=== PATIENT | female | born 1955 | race Caucasian/White ===

== ENCOUNTER 2019-06-21 07:10 | Day surgery (SDC) | payer MEDICARE, SELFPAY ==
--- NOTE | 2019-05-25 17:23 | HP.PCM_ITS ---
History and Physical Date of Admission: 05/26/19 HISTORY AND PHYSICAL ? Emy Price 1955 ? ? REFERRING PHYSICIAN: ??Moses Aceves, DO ? CHIEF COMPLAINT: ??gallbladder issues ? HPI: Emy is a 61 year old female with a complaint of right upper quadrant pain. ?The patient has had symptoms of right upper quadrant pain. ? The patient was seen by the emergency room physician. ?Emy underwent an ultrasound. ?These tests demonstrated cholelithiasis. The patient is referred for evaluation and treatment. ? She was seen by Dr. Saab who recommended cholecystectomy. ?The patient was offered cholecystectomy at [place] or [facility] area the patient called wanting a second opinion and she wished to have her surgical procedure at [facility]. ? She had a follow up echocardiogram which demonstrated: ? CONCLUSIONS: - Technically difficult exam due to body habitus. - Exam indication: Preop evaluation for noncardiac surgery with low/intermediate clinical risk - The left ventricle is normal in size. There is mild concentric left ventricular hypertrophy. Left ventricular systolic function is normal. EF = 64 ? 5% (2D biplane) Grade I left ventricular diastolic dysfunction. - The right ventricle is normal in size. Right ventricular systolic function is normal. - The left atrial cavity is mildly dilated. - Moderate MAC with trivial MR. - Mild aortic sclerosis. - Exam was compared with the prior echocardiographic exam performed on 04/08/2003. No significant changes ? I planned?for laparoscopic cholecystectomy. ?The patient then decided to symptoms were not significant enough to warrant surgery. ?Recently, she is having increasing right upper quadrant complaints. ?She returns now requesting cholecystectomy. ?She states she is working on decreasing her tobacco use. ? SIGNIFICANT MEDICAL PROBLEMS:? PAST?MEDICAL?HISTORY PAST MEDICAL HISTORY Diagnosis Date ? Aortic sclerosis 03/2013 ? f/u echo in 2-3 years ? COPD (chronic obstructive pulmonary disease) (HCC) ? ? DDD (degenerative disc disease) ? ? Depression ? ? Diabetes mellitus without mention of complication ? ? Diabetes mellitus ? Essential hypertension, benign ? ? Insomnia ? ? Neuropathy (HCC) ? ? Tobacco abuse ? ? ? OPERATIONS:? PAST?SURGICAL?HISTORY PAST SURGICAL HISTORY Procedure Laterality Date ? COLONOSCOPY ? 2002 ? [facility] - ? COLONOSCOPY ? 04/19/13 ? Dr. Plaza ? REMOVAL OF TONSILS,<12 Y/O ? ? ? Tonsillectomy ? TOTAL ABDOM HYSTERECTOMY ? 1986 ? Hysterectomy, PJ ? ? CURRENT MEDICATIONS:? CURRENT?MEDICATIONS Current Outpatient Medications Medication Sig Dispense Refill ? FLUoxetine HCl (PROZAC) 40 mg capsule Take 1 capsule by mouth once daily. 90 capsule 1 ? omeprazole (PRILOSEC) 20 mg capsule Take 1 capsule by mouth daily before breakfast. 1/2 hr before meal. 30 capsule 1 ? buPROPion (WELLBUTRIN) 100 mg tablet Take 1 tablet PO in AM, 2 tablets PO in PM 270 tablet 0 ? oxyCODONE IR (ROXICODONE) 5 mg immediate release tablet Take 1-2 tablets by mouth every 6 hours as needed for Pain for up to 30 days. Max of 65 tablets per 30 days, Ok to fill on 05/18/19 or after 65 tablet 0 ? oxyCODONE IR (ROXICODONE) 5 mg immediate release tablet Take 1-2 tablets by mouth every 6 hours as needed for Pain for up to 50 days. Max of 65 tablets per 30 days, Ok to fill on 04/18/19 or after 65 tablet 0 ? oxyCODONE IR (ROXICODONE) 5 mg immediate release tablet Take 1-2 tablets by mouth every 6 hours as needed for Pain for up to 30 days. Max of 65 tablets per 30 days, Ok to fill on 03/19/19 or after 65 tablet 0 ? busPIRone (BUSPAR) 5 mg tablet TAKE 1 TABLET THREE TIMES DAILY FOR ANXIETY attack 270 tablet 0 ? cholecalciferol (VITAMIN D3) 2,000 unit tablet Take 1 tablet by mouth once daily. 90 tablet 3 ? amLODIPine (NORVASC) 5 mg tablet Take 1 tablet by mouth once daily. 90 tablet 3 ? traZODone (DESYREL) 150 mg tablet Take 1 tablet by mouth daily at bedtime. 90 tablet 3 ? Losartan-Hydrochlorothiazide 100-12.5 mg per tablet Take 1 tablet by mouth once daily. 90 tablet 1 ? simvastatin (ZOCOR) 40 mg tablet Take 1 tablet by mouth daily at bedtime. 90 tablet 1 ? metFORMIN (GLUCOPHAGE) 500 mg tablet Take 1 tablet by mouth twice daily with meals. 180 tablet 1 ? Magnesium 250 mg tab Take 1 tablet by mouth once daily. 30 tablet 3 ? albuterol HFA (PROVENTIL HFA, VENTOLIN HFA) 90 mcg/actuation inhaler Inhale 2 Puffs as instructed every 4 hours as needed for Wheezing/Shortness of Breath. 2 Inhaler 1 ? UNILET SUPER THIN LANCETS 30 gauge misc as directed. ? 3 ? blood sugar diagnostic (ACCU-CHEK FRANCK PLUS TEST STRP) test strip Test blood sugar once daily as directed. E11.65 100 Strip 3 ? Lancets (ACCU-CHEK SOFTCLIX LANCETS) lancets Test blood sugar once daily as directed. ?E11.65 100 Each 3 ? Blood-Glucose Meter (FREESTYLE LITE METER) monitoring kit Use as directed 1 Each 0 ? blood sugar diagnostic (FREESTYLE LITE STRIPS) test strip Test blood sugar(s) 2-3 times daily. ?Dx:250.0 . Insulin: No 50 Strip 11 ? Lancets (FREESTYLE LANCETS) lancets Test blood sugar(s) 2-3 times daily. ?Dx: 250.0 . Insulin: No 100 Each 11 ? No current facility-administered medications for this visit.? ? ALLERGIES:?Latex; Penicillins ? PERSONAL HISTORY:? SOCIAL?HISTORY Social History ??Socioeconomic History ?Marital status: Single ?Spouse name: Not on file ?Number of children: 1 ?Years of education: Not on file ?Highest education level: Not on file ??Occupational History ?Occupation: disability ??Social Needs ?Financial resource strain: Not on file ?Food insecurity: ?Worry: Not on file ?Inability: Not on file ?Transportation needs: ?Medical: Not on file ?Non-medical: Not on file ??Tobacco Use ?Smoking status: Current Every Day Smoker ?Packs/day: 1.50 ?Years: 25.00 ?Pack years: 37.5 ?Types: Cigarettes ?Smokeless tobacco: Never Used ??Substance and Sexual Activity ?Alcohol use: No ?Drug use: No ?Sexual activity: Not Currently ??Lifestyle ?Physical activity: ?Days per week: Not on file ?Minutes per session: Not on file ?Stress: Not on file ??Relationships ?Social connections: ?Talks on phone: Not on file ?Gets together: Not on file ?Attends pentecostalism service: Not on file ?Active member of club or organization: Not on file ?Attends meetings of clubs or organizations: Not on file ?Relationship status: Not on file ?Intimate partner violence: ?Fear of current or ex partner: Not on file ?Emotionally abused: Not on file ?Physically abused: Not on file ?Forced sexual activity: Not on file ??Other Topics ?Concerns: ?Not on file ??Social History Narrative ?Not on file ? FAMILY HISTORY:? FAMILY?HISTORY FAMILY HISTORY Problem Relation Age of Onset ? Cancer Mother ?stomach ? Ischemic Heart Disease Father ? ? Hypertension Father ? ? Diabetes Father ? ? Cancer Sister ?lung X 2 sisters ? Cancer Sister ?uterine ? REVIEW OF SYMPTOMS: ??The review of systems data was entered by the nurse and reviewed by me ? Nursing Notes: Smita Knight LPN ?05/21/2019 ?3:15 PM ?Signed REVIEW OF SYSTEMS: ?General:???The patient denies fatigue, NOTES weight loss, denies weight gain, denies feeling hot, and denies feelings of cold. ?Eyes: ?The patient denies glaucoma, denies eye injury/surgery, wears glasses or contacts. ?Ear/Nose/Throat: ?The patient denies allergies, denies hayfever, denies ear infections, and denies bloody noses. ?Cardiovascular: ?The patient denies chest pain, denies heart disease, NOTES high blood pressure,denies cardiac stent, denies prior heart attack, denies irregular heart beat, NOTES high cholesterol, ?denies poor circulation, denies heart failure, other cardiac issues, denies claudication, denies cold feet, denies peripheral arterial stent. ?Respiratory: ?The patient denies tuberculosis, denies pneumonia, denies frequent cough, denies pulmonary embolism, denies shortness of breath, and denies coughing up blood. ?Gastrointestinal: ?The patient denies difficulty swallowing, denies acid reflux, denies ulcers, denies vomiting, denies jaundice/hepatitis, denies gallbladder problems, denies black or tarry stools, denies hemorrhoids, denies bleeding from rectum, denies diverticulitis, denies constipation, denies diarrhea, denies loss of stool control, and denies hernias. ?Kidney/Bladder: ?The patient denies kidney stones, NOTES urine infections, and denies bloody urine. ?Skin: ?The patient denies a history of skin cancer, denies bleeding/changing moles, and denies a history of skin rash. ?Neurologic: ?The patient denies a history of epilepsy/convulsions, denies headaches, NOTES head/spinal injuries, and denies stroke/TIA. ?Psychiatric: ?The patient denies psychiatric medications, NOTES depression, and denies voices, denies substance abuse. ?Endocrine: ?The patient denies thyroid disorders, NOTES diabetes, and denies hormonal problems. ?Hematologic: ?The patient denies a history of bruising, denies bleeding, and denies anemia, denies blood clots. ?Infections: ?The patient denies a history of measles and mumps, denies rheumatic fever, and denies sexually transmitted diseases. ?Musculoskeletal: ?The patient NOTES back pain/injury, denies back problems, denies sciatica, denies knee/foot trouble, denies arthritis, or denies gout. ? ? When was patient's last Mammogram screening? 2 years ago ? ?Last Colonoscopy: ?2012 ? Smita Knight LPN ? ? PHYSICAL EXAMINATION: ? General: ?The patient is 61 year old female, well nourished, well hydrated in no acute distress. ?The patient is oriented to time, place, and person. ? VITALS:??Blood pressure 112/64, pulse 78, temperature 36.2 ?C (97.1 ?F), temperature source Temporal Artery, resp. rate 18, height 162.6 cm (5' 4), weight 64 kg (141 lb), SpO2 94 %.??Body mass index is 24.2 kg/m?.? ? HEENT: ?Normal cephalic, ataumatic, pupils are equally round, sclera are anicteric, mucous membranes are moist, oropharynx is clear. ?Neck has no masses, asymmetry or lymphadenopathy. ?Thyroid is unremarkable. ? Respiratory: ?Clear to auscultation and percussion. ?Normal respiratory excursion and pattern. ? Cardiac: ?Examination is regular rate and rhythm. - Significant systolic ejection murmur ? Abdominal exam: ?Normoactive bowel sounds, Soft, non tender in the right upper quadrant negative Tracy's sign, ?with no palpable masses. ?No hepatosplenomegaly. ?No palpable hernias. ? Rectal exam: exam deferred ? Extremities: ?no clubbing, cyanosis or edema. ?No adenopathy. ? Other: ? ? LABORATORY VALUES: As Noted ? RADIOLOGIC STUDIES: ?As Noted Above ? IMPRESSION: Cholelithiasis ? PLAN: ?? I plan to perform a laparoscopic cholecystectomy with intraoperative choleangiogram. ??The planned surgical procedure was discussed extensively with the patient. ?The risks, benefits, anticipated outcomes and possible complications were mentioned. ?My staff has also explained the procedure in understandable terms and the patient was given the option to take printed material concerning the planned procedure. ?The patient had the opportunity to ask questions concerning the planned procedure. ?The patient freely consents to the planned procedure. ? Anticipated Surgical Procedure/ CPT Code: LAPAROSCOPIC CHOLECYSTECTOMY WITH INTRAOPERATIVE CHOLEANGIOGRAM - 50339-561 ? Anticipated Anesthetic: General ? Patient weight:??Blood pressure 112/64, pulse 78, temperature 36.2 ?C (97.1 ?F), temperature source Temporal Artery, resp. rate 18, height 162.6 cm (5' 4), weight 64 kg (141 lb), SpO2 94 %.?BMI: ?Body mass index is 24.2 kg/m?. ? Planned antibiotic: clindamycin 600mg IVPB inspector repairer sandstone to OR ? SCDs needed - Yes ? Loft Patternmaker Needed - Yes ?? ? My findings have been communicated to Dr. Helen Aceves DO via shared medical record. ?This note will be forwarded to Dr. Moses Aceves DO. ? Diagnoses:?(M25.511) Pain in joint of right shoulder ?(primary encounter diagnosis) (K80.20) Calculus of gallbladder without cholecystitis without obstruction ? Ty Plaza MD
[2019-05-26 05:54] VITALS: BP 159/68; PULSE 64; RESP 16; TEMP 36.2; O2SAT 97; BMI 24.7
[2019-05-26 05:55] LABS: Bedside Glucose 110 mg/dL (70-110)
[2019-05-26] MEDS: Lactated Ringers 1,000 ML 100 ML IV (06:14)
[2019-05-26 06:45] LABS: Hematocrit 38.3 % (37-47); Hemoglobin 13.4 g/dL (12.0-15.0); Mean Corpuscular Hgb 30.6 pg (27.0-32.0); Mean Corpuscular Volume 87.4 fL (81-99); Mean Platelet Vol. 9.8 fl (6.2-12.0); Platelet Count 213 K/mm3 (150-450); RBC Distribution Width CV 12.6 % (11.6-14.6); RBC Distribution Width SD 40.3 fl (35.1-43.9); Red Blood Count 4.38 M/mm3 (4.2-5.4); White Blood Count 7.7 K/mm3 (4.4-11.0)
[2019-05-26 06:49] LABS: Anion Gap 11 (5-15); BUN 17 mg/dL (7-18); BUN/Creat Ratio 18.7 RATIO (10-20); Calcium,Total 8.7 mg/dL (8.5-10.1); Chloride 107 mmol/L (98-107); Creatinine, Serum 0.91 mg/dL (0.55-1.02); EST Glomerular Filtration Rate 67 mL/min (>60); Est Glom Filt Rate - Afr Amer 81 mL/min (>60); Estimated Creatinine Clearance 55.35 ml/min; Glucose 113 mg/dL (74-106); Potassium 2.9 mmol/L (3.5-5.1); Sodium Level 142 mmol/L (136-145)
[2019-05-26 08:03] LABS: Hemoglobin A1c 5.4 % (4.2-6.3)
[2019-06-21 07:31] LABS: Bedside Glucose 143 mg/dL (70-110)
[2019-06-21 07:43] VITALS: BP 153/67; PULSE 68; RESP 15; TEMP 36.7; O2SAT 97; BMI 26.2
[2019-06-21] MEDS: Lactated Ringers 1,000 ML 100 ML IV ×2 (07:50→13:00)
--- NOTE | 2019-06-21 08:50 | RAD_ITS ---
STUDY: INTRAOPERATIVE CHOLANGIOGRAM. REASON FOR EXAM: Female, 64 years old. Laparoscopic cholecystectomy. FLUOROSCOPY TIME (if supplied): ( 19.1 seconds ) minutes/seconds. 122 images were obtained for a cine loop. TECHNIQUE: Intraoperative cholangiogram was performed by the surgeon. Imaging was submitted. COMPARISON: None. FINDINGS: The intrahepatic biliary ducts are unremarkable. The common bile duct is not dilated. No intraluminal filling defect is seen. There is free flow of contrast into the duodenum. RAD/Cholangiogram/ O R,Initial IMPRESSION: Unremarkable intraoperative cholangiogram. Electronically Signed: Armin Kaba, at 15:11 EST , Service support ,
--- NOTE | 2019-06-21 08:50 | GALL_PTH ---
PATIENT: JENNIFER CRUZ [place] [facility] [place][id number] AGE/SX: 64/F ROOM: RE06/21/[address]: Dr. Ty Plaza MD : 1955 BED: DIS: 06/21/2019 SPEC #: [id number] RECD: 06/21/19 13:44 STATUS: YG REJordon #: [id number] DENI: 06/21/19 08:[address]: Ty Plaza DEPT: SURGICAL PATHOLOGY RECD BY: Clayton Mccormick ENTERED: 06/21/19 13:52 SP TYPE: CHARU MACK DR: Dr. Moses Aceves, DO Tissues: Gallbladder, NOS Procedures: Surgery Specimen Level III HEADER OPERATION: Laparoscopic cholecystectomy with IOC PRE-OP DIAGNOSIS: Calculus of gallbladder without cholecystitis TISSUE SUBMITTED: Gallbladder MICROSCOPIC DIAGNOSIS Gallbladder, cholecystectomy: Chronic cholecystitis and cholelithiasis. SJ:rianna 11/12/19 MICROSCOPIC DESCRIPTION Slides are reviewed. GROSS DESCRIPTION Received is one container labeled with the patient's name and designated gallbladder. The specimen consists of a previously, partially opened gallbladder measuring 11.5 cm in length and 6 cm in diameter. The external surface is pink-jenkins, smooth and glistening for the most part. Focally it is granular, hemorrhagic and contains cautery artifact. The gallbladder contains green-yellow mucoid bile. Present in the container are two ovoid to multifaceted black stones measuring 2.5 and 4 cm in greatest dimension. The mucosa is bile-stained and without any mass lesions. The gallbladder wall measures up to 0.3 cm in thickness. Breakdown Worker sections from the gallbladder and the cystic duct are submitted in one cassette. / SJ:rianna 06/21/19 TC:3 CPT: 36158
[2019-06-21] MEDS: Bupivacaine Mpf 0.5% 30 ML VIAL (13:25)
--- NOTE | 2019-06-21 13:37 | OP.PCM_ITS ---
Report of Operation Date of Procedure: 06/21/19 Pre-Operative Diagnosis: symptomatic cholelithiasis Post-Operative Diagnosis: symptomatic cholelithiasis, normal intraoperative cholangiogram Surgery/Procedure Performed:: laparoscopic cholecystectomy with intraoperative cholangiogram manager media: Key Flood Type of Anesthesia:: General Anesthesiologist: Logan Greer - ASA2 Specimen's removed: gallbladder Estimated Blood Loss (mL): 50 Fluids Replaced: 1200 Description of Procedure: The patient was brought to the operating suite. Sign in was performed verifying patient, site, position, SCIP antibiotic prophylaxis- 900 milligrams of clindamycin and DVT prophylaxis with SCDs. Following induction of general anesthetic. The patient?s abdomen was prepped and draped in the usual fashion. Timeout was performed verifying patient, site, position. Local anesthetic was injected below the umbilicus. Incision made and dissection carried down to the umbilical root fascia. 2 stay sutures were placed. Incision made in the fascia, the peritoneum entered under direct visualization. A 10 mm Parks trocar was inserted and secured with the stay sutures. Pneumoperitoneum to 15 mmHg was insufflated. Visual inspection revealed and enlarged gallbladder with multiple stones present. 3 right upper quadrant 5 ports were placed in the standard position. The gallbladder was grasped retracted upward and outward. Dissection was carried out in Calot?s triangle. When a critical view of the neck of the gallbladder funneling of the cystic duct with no signs of aberrant ductal structures were seen, a clip was placed on the neck of the gallbladder cystic duct junction. A partial ductotomy was made. A Cholangiocath was inserted into the duct and secured with a clip. Intraoperative cholangiogram was performed demonstrating filling of the cystic duct filling the common bile duct and emptying into the duodenum without signs of obstruction area and the clip and catheter were removed. 2 clips placed on the cystic duct and the cystic duct divided. Dissection was continued until the cystic artery was clearly dissected and identified. The artery was then doubly clipped proximally singly clipped distally and divided. The gallbladder was then dissected free from the gallbladder fossa using electrocautery. The gallbladder was placed in an Endobag and removed through the umbilical port site. in the bag and gallbladder tore while attempting to remove the gallbladder through the umbilical port site. The umbilical port site was extended. The dropped large gallstone was retrieved and the sites were irrigated copiously. Two 0 PDS [id number] suture was placed around the umbilical port site defect. Pneumoperitoneum was reestablished. The gallbladder fossa was checked for hemostasis. With good hemostasis, the area was irrigated and aspirated to clear. 5mm ports were removed under direct visualization with no signs of bleeding. Pneumoperitoneum was released. The Parks trocar was removed. The umbilical fascial suture was secured area did skin was closed with interrupted 4-0 Monocryl subcuticular sutures. Steri-Strips and bandages were applied. The patient was brought to recovery room in stable condition. - Admit VTE Documentation VTE Present on Admission: No VTE Mechan Device Prophylaxis: SCD's VTE Pharm Prophylaxis ordered?: No
[2019-06-21 13:45] VITALS: BP 121/62; BP 159/68; PULSE 67; RESP 16; TEMP 36.4; O2SAT 97
[2019-06-21 13:56] LABS: Bedside Glucose 88 mg/dL (70-110)
[2019-06-21 14:00] VITALS: BP 159/68; BP 93/48; PULSE 64; RESP 16; O2SAT 97
[2019-06-21 14:14] VITALS: BP 159/68; BP 91/45; PULSE 64; RESP 16; O2SAT 96
[2019-06-21 14:28] VITALS: BP 159/68; BP 96/69; PULSE 61; RESP 16; TEMP 36.1; O2SAT 94
[2019-06-21 15:00] VITALS: BP 110/58; BP 159/68; PULSE 61; RESP 16; TEMP 36.6; O2SAT 93
--- NOTE | 2019-06-21 15:06 | DCINST_ITS ---
Discharge Diet: Light diet - advance as tolerated Discharge Activity: May Not Drive - for 2-3 days or while taking narcotic pain medications., - - Do not drive, work heavy equipment or sign legal documents for 24 hours. May shower in (days): 1 - with the bandage in place. Additional Activity Instructions:: Pain medication may cause nausea. You should typically eat light foods as you take your pain medications. Pain medication may also cause constipation. If this is a problem for you, please discuss with your doctor. Call your doctor if your incision/area has: Continuous Slow Oozing, Sudden Increased Bleeding, Increased Pain/ Swelling, Increased Redness, Foul Smelling Discharge Call your doctor if you observe: Fever of 101 or Higher Suture Line Care: Avoid Pulling/Pushing, Avoid Pinching/Bending Additional Dressing/Incision Instructions:: Leave operative bandaids on for 2 days. When you remove dressing, leave Steri-Strips on until your follow-up appointment, or until the Steri-Strips fall off on their own. Allergies/Adverse Reactions: Allergies Latex, Natural Rubber Allergy (Verified 06/21/19 07:23) Shortness of breath Penicillins Allergy (Verified 06/21/19 07:23) Hives Medications to take at Discharge Fluoxetine HCl [Prozac] 20 mg PO DAILY 10/18/16 Magnesium 250 mg PO DAILY 10/18/16 Simvastatin [Zocor] 40 mg PO QHS 10/18/16 Trazodone ER [Oleptro Er] 150 mg PO QHS 10/18/16 Albuterol Inhaler [Ventolin Hfa] 1 - 2 puff INHALATION Q4H PRN PRN 05/25/19 Amlodipine [Norvasc] 5 mg PO DAILY 05/25/19 Bupropion HCl [Wellbutrin Sr] 100 mg PO DAILY 05/25/19 Bupropion HCl [Wellbutrin Sr] 200 mg PO QHS 05/25/19 Losartan/Hydrochlorothiazide [Losartan-Hctz 100-25 mg Tab] 1 ea PO DAILY 05/25/19 Metformin HCl [Metformin ER Gastric] 1,000 mg PO BID 05/25/19 busPIRone [Buspar] 5 mg PO BID 05/25/19 Potassium Chloride [Klor-Con M10] 10 meq PO BID 30 Days #60 tab.er.prt 05/26/19 Oxycodone [Oxyir] 5 mg PO Q4H PRN PRN 5 Days #12 tab 06/21/19 The following prescriptions were given: Potassium Chloride [Klor-Con M10] 10 meq PO BID 30 Days #60 tab.er.prt Prescription Printed Oxycodone [Oxyir] 5 mg PO Q4H PRN PRN 5 Days #12 tab PRN Reason: Pain Score 4-05/20 Prescription Printed Primary Care Physician: Moses Aceves DO [Primary Care Provider] - Test Results: Test results from this visit will be discussed in further detail at your follow- up appointment, if applicable. Please Follow Up With: Ty Plaza MD - Please call [phone] to schedule an appointment. When: 7 days after your surgery
[2019-06-21] MEDS: oxyCODONE 5 MG Tablet PO (15:11)
== END 2019-06-21 15:44 | disposition home or self-care (01) ==
LOC: SDC 07:12 → AC 07:13
PROVIDERS: Anesthesiology; Family Provider Student in an Organized Health Care Education/Training Program; PCP Student in an Organized Health Care Education/Training Program; Referring Provider Student in an Organized Health Care Education/Training Program; Visit Provider Surgery
PROC: (CPT 47610; principal; 2019-06-21 08:30)
DX: K80.10 Calculus of gallbladder with chronic cholecystitis without obstruction (principal); J44.9 Chronic obstructive pulmonary disease, unspecified; F32.9 Major depressive disorder, single episode, unspecified; I10 Essential (primary) hypertension; E11.9 Type 2 diabetes mellitus without complications; Z88.0 Allergy status to penicillin; F17.210 Nicotine dependence, cigarettes, uncomplicated
CPT/HCPCS: 47563; 74300; 76000; 80048; 82962; 83036; 84132; 85027; 88304; 93005; J7120; J2405

== ENCOUNTER → 2021-12-04 | Outpatient (CLI) | payer MEDICARE, SELFPAY ==
[2021-12-04 15:24] LABS: Hemoglobin 14.8 g/dL (12.0-15.0); Mean Corp Hgb Conc 34.4 g/dL (32-36); Mean Corpuscular Hgb 29.7 pg (27.0-32.0); Mean Corpuscular Volume 86.3 fL (81-99); Mean Platelet Vol. 10.4 fl (6.2-12.0); Platelet Count 274 K/mm3 (150-450); RBC Distribution Width CV 12.8 % (11.6-14.6); RBC Distribution Width SD 39.8 fl (35.1-43.9); Red Blood Count 4.98 M/mm3 (4.2-5.4); White Blood Count 9.5 K/mm3 (4.4-11.0)
[2021-12-04 15:43] LABS: Vitamin B12 472 pg/mL (211-911)
[2021-12-04 15:54] LABS: AST(SGOT) 14 U/L (15-37); Alanine Aminotransfer ALT/SGPT 14 U/L (13-56); Albumin, Serum 3.8 g/dL (3.2-5.0); Alkaline Phosphatase 151 U/L (45-117); Anion Gap 5 (5-15); BUN 19 mg/dL (7-18); BUN/Creat Ratio 19.9 RATIO (10-20); Calcium,Total 8.9 mg/dL (8.5-10.1); Chloride 104 mmol/L (98-107); Creatinine, Serum 0.96 mg/dL (0.55-1.02); EST Glomerular Filtration Rate 62 mL/min (>60); Est Glom Filt Rate - Afr Amer 75 mL/min (>60); Globulin 3.9 g/dL (2.2-4.2); Glucose 124 mg/dL (74-106); Potassium 4.3 mmol/L (3.5-5.1); Protein, Total 7.7 g/dL (6.4-8.2); Sodium Level 136 mmol/L (136-145); Thyroid Stim Hormone (TSH) 1.63 uIU/mL (0.358-3.74)
[2021-12-17 08:07] LABS: Free Kappa Light Chains 20.2 mg/L (3.3-19.4); Free Lambda Light Chains 16.2 mg/L (5.7-26.3)
[2021-12-17 13:24] LABS: Vitamin B1, Thiamine 139.9 nmol/L (66.5-200.0)
== END | disposition home or self-care (01) ==
LOC: MTLAB 12:48
PROVIDERS: PCP Student in an Organized Health Care Education/Training Program; Referring Provider Psychiatry & Neurology Neurology; Visit Provider Psychiatry & Neurology Neurology
DX: E11.42 Type 2 diabetes mellitus with diabetic polyneuropathy (principal); G31.84 Mild cognitive impairment of uncertain or unknown etiology
CPT/HCPCS: 36415; 80053; 82607; 82746; 83883; 84425; 84443; 85027

== ENCOUNTER → 2021-12-17 | Outpatient (CLI) | payer MEDICARE, SELFPAY ==
--- NOTE | 2021-12-17 10:13 | MRI_ITS ---
STUDY: MRI BRAIN WITH AND WITHOUT CONTRAST REASON FOR EXAM: Female, 66 years old. Parkinson''s disease; cerebrovascular disease TECHNIQUE: Standardized multiplanar fat and water weighted pulse sequences were obtained. IV DOTAREN 15CC was administered for the contrast portion of the examination. COMPARISON: Head CT dated October 18, 2016 FINDINGS: There is mild cerebral atrophy with widening of the extra-axial spaces and ventricular dilatation. There are a limited number of small white matter hyperintensities, distributed throughout the deep white matter tracts of the cerebral hemispheres, consistent with mild chronic white matter ischemic changes. There is no evidence for recent intracranial ischemia or other cause of cytotoxic edema on diffusion weighted imaging (DWI). Normal T2* images of the brain without demonstrated susceptibility artifact. There is no demonstrated hemosiderin stain. No focal brain parenchymal lesions or abnormal enhancement. No abnormal thickening or enhancement of the meninges or dura. Normal bilateral basal ganglia. Slightly heterogeneous signal in the posterior aspect of the right thalamic lobe corresponds to dense calcification which is better visualized on the head CT. Unremarkable left thalamic lobe. There is no extra-axial fluid accumulation. Normal flow voids within the major intracranial circulation suggesting patency by spin echo criteria. Normal venous enhancement. There is no enhancing intra-axial or extra-axial abnormality. Normal sella turcica, pituitary gland, infundibular stalk, optic chiasm and hypothalamus. Normal tectal plate and pineal gland. Normal midbrain, bhanu and medulla. Normal cerebellum. Normal basal cisterns. Normal bilateral temporal bones. Normal bilateral internal auditory canals. No demonstrated orbital abnormality, within the constraints of a routine brain study. Normal visualized paranasal sinuses. Normal calvarium and skull base. Normal visualized soft tissue structures. Normal visualized upper cervical spine. MRI/Brain W/WO Contrast IMPRESSION: 1. Involutional changes of the brain, as described above. 2. No focal brain parenchymal lesions or abnormal enhancement. No abnormal thickening or enhancement of the meninges or dura. Electronically Signed: Rodney Osman MD at 13:23 EDT ,
== END | disposition home or self-care (01) ==
LOC: MRI 10:13
PROVIDERS: PCP Student in an Organized Health Care Education/Training Program; Visit Provider Psychiatry & Neurology Neurology
DX: G20 Parkinson's disease (principal); I67.9 Cerebrovascular disease, unspecified; G31.84 Mild cognitive impairment of uncertain or unknown etiology
CPT/HCPCS: 70553; A9575

== ENCOUNTER → 2023-04-11 | Outpatient (CLI) | payer MEDICARE, MEDICAID, SELFPAY ==
[2023-04-15 16:09] LABS: Acetylcholine Receptor Binding < 0.03 nmol/L (0.00-0.24)
== END | disposition home or self-care (01) ==
PROVIDERS: PCP Student in an Organized Health Care Education/Training Program; Referring Provider Ophthalmology; Visit Provider Ophthalmology
DX: H53.2 Diplopia (principal)
CPT/HCPCS: 36415; 84238

== ENCOUNTER 2024-09-02 19:17 | Inpatient (IN) | payer MEDICARE, MEDICAID, SELFPAY ==
[2024-09-02 19:18] VITALS: BP 135/80; PULSE 74; RESP 18; TEMP 36.9; O2SAT 91; BMI 33.3
[2024-09-02 19:20] VITALS: BP 135/80; PULSE 74; RESP 18; TEMP 36.9; O2SAT 91
--- NOTE | 2024-09-02 19:30 | EKG12_ITS ---
Test Reason : DYSRHYTHMIA Blood Pressure : */* mmHG Vent. Rate : 74 BPM Atrial Rate : 74 BPM P-R Int : 198 ms QRS Dur : 90 ms QT Int : 402 ms P-R-T Axes : 92 -35 66 degrees QTcB Int : 446 ms Normal sinus rhythm Left axis deviation Minimal voltage criteria for LVH, may be normal variant ( [place] product ) Nonspecific ST and T wave abnormality Abnormal ECG Confirmed by LISET ANGEL, LUIS ([id number]), photograph editor BRADFORD RODRÍGUEZ ([id number]) on 09/07/2024 7:15:19 AM Referred By: Confirmed By: LUIS HUTCHINS MD
--- NOTE | 2024-09-02 19:30 | CT_ITS ---
EXAMINATION : Head CT w/out contrast HISTORY : weakness COMPARISON : 10/18/2016. TECHNIQUE : Multiple contiguous axial images were obtained from the skull base to the vertex without intravenous contrast. A radiation dose optimization technique was used for this scan. FINDINGS : The ventricles and sulci are normal in size. There is no evidence for acute intracranial hemorrhage, mass effect, or midline shift. There is no extra-axial fluid collection. There is normal bird-white differentiation, without CT evidence of acute ischemia or infarct. There are benign-appearing calcifications. The skull base and calvarium are unremarkable. The orbits are unremarkable. The paranasal sinuses are clear. The mastoid air cells are well-aerated. The soft tissues are unremarkable. CT/Brain/Head without Contrast IMPRESSION: No acute intracranial abnormality. Electronically Signed: Suman Cevallos MD at 20:08 EST ,
--- NOTE | 2024-09-02 19:32 | EDS_ITS ---
HPI <ELMA Ferro - Last Filed: 09/02/24 21:41> History of Present Illness Chief Complaint: General Illness Narrative Narrative: Patient is a 69-year-old female with history of CVA, COPD, type 2 diabetes, Parkinson's disease who smokes 1.5 packs/day. Patient lives alone, presenting to the emergency department for weakness. Per the patient, she had 2 falls today, also notes that her motor skills were getting worse and she tipped over to bottles of pop today. Per the family, the patient has been going downhill for the last month. Patient does have a walker as well as a cane however per the family she does not use them very well. Patient was speaking with a neighbor today, mention that she fell twice and she is feeling weak, the neighbor then called EMS. PFS <ELMA Ferro - Last Filed: 09/02/24 21:41> [facility] Medical History (Updated 09/02/24 @ 21:41 by ELMA Ferro) Tobacco use Anxiety and depression CKD (chronic kidney disease) History of drug abuse Diabetes mellitus type 2 in nonobese Venous insufficiency Hypertension Hyperlipidemia Recovering alcoholic Restless legs syndrome Parkinson's disease Mild cognitive impairment Polyneuropathy COPD (chronic obstructive pulmonary disease) Osteoarthritis Neuropathy Heart murmur High triglycerides Cataracts, bilateral Back problem Arthritis Home Medications ?Medication ?Instructions ?Recorded ?Last Taken ?Type fluoxetine 20 mg capsule (Prozac) 20 mg PO DAILY 10/18/16 10/18/16 History magnesium 250 mg tablet 250 mg PO DAILY 10/18/16 10/18/16 History simvastatin 40 mg tablet 40 mg PO QHS 10/18/16 10/16/16 History trazodone 150 mg tablet 150 mg PO QHS 10/18/16 10/17/16 History albuterol sulfate 90 mcg/actuation 1 - 2 puff inhalation Q4H PRN PRN 05/25/19 Unknown History aerosol inhaler Sob &/Or Wheezing amlodipine 5 mg tablet 5 mg PO DAILY 05/25/19 06/21/19 05:00 History 5 MG bupropion HCl 100 mg tablet,12 hr 100 mg PO DAILY 05/25/19 05/26/19 04:30 History sustained-release 100 MG bupropion HCl 100 mg tablet,12 hr 200 mg PO QHS 05/25/19 Unknown History sustained-release buspirone 5 mg tablet 5 mg PO BID 05/25/19 06/21/19 05:00 History 5 MG losartan 100 1 ea PO DAILY 05/25/19 Unknown History mg-hydrochlorothiazide 25 mg tablet metformin 1,000 mg 24 hr 1,000 mg PO BID 05/25/19 Unknown History tablet,extended release (gastric reten.) gabapentin 300 mg capsule 300 mg PO TID 12/04/21 Unknown History potassium chloride 10 mEq 10 meq PO BID 12/04/21 Unknown History capsule,extended release carbidopa 25 mg-levodopa 100 See Rx Instructions PO TID #405 07/27/24 Unknown Rx mg-entacapone 200 mg tablet tabs ropinirole 1 mg tablet 1 mg PO QHS #90 tabs 07/27/24 Unknown Rx amantadine HCl 100 mg capsule 100 mg PO QDAY #90 caps 08/09/24 Unknown Rx alendronate 70 mg tablet mg PO 09/02/24 Unknown History buspirone 10 mg tablet mg 3XD 09/02/24 Unknown History fluoxetine 10 mg capsule mg DAILY 09/02/24 Unknown History glipizide 5 mg tablet mg 09/02/24 Unknown History Allergy/AdvReac Type Severity Reaction Status Date / Time Latex, Natural Rubber Allergy Severe Shortness Verified 07/27/24 10:50 of breath Penicillins AdvReac Severe Hives Verified 07/27/24 10:50 Family History Other Alcoholism Anxiety Arthritis Bowel disease Heart disease High cholesterol Parkinson disease Surgical History History of hysterectomy Social History (Updated 09/02/24 @ 21:[address] Genna Ibrahim MD) household members: none Smoking Status: Current every day smoker tobacco type: cigarettes Smoking packs per day: 1.5 Smoking cigarettes per day: 30.0 Tobacco: How many years used: 34 alcohol intake: former details: Been clean for 25 years substance use type: former substance user what type of physical activity do you participate in: walking frequency: daily carlo/temple: Religious seatbelt use: always ROS <ELMA Ferro - Last Filed: 09/02/24 21:41> ROS ED ROS Narrative Constitutional: Negative for fever, chills, weight loss. Positive for weakness Eyes: Negative for vision loss, vision change, double vision ENT: Negative for any sore throat, ear pain, congestion Cardiovascular: Negative for any chest pain, tightness, palpitations Respiratory: Negative for any cough, sputum production, hemoptysis, dyspnea, dyspnea on exertion, orthopnea Gastrointestinal: Negative for any abdominal pain, nausea, vomiting, diarrhea, constipation, blood in stool, blood in vomit : Negative for any urinary frequency, dysuria, retention, blood in urine Muscle skeletal: Negative for any neck pain, back pain Neurological: Negative for any headache, syncope, dizziness. Positive for feeling shaky Skin: Negative for any rashes, itching, abrasions, lacerations Psychiatric: Negative for any depression, anxiety, stress, suicidal ideation, homicidal ideation Hematologic: Negative for any excessive bruising, easy bleeding EXAM <ELMA Ferro - Last Filed: 09/02/24 21:41> Physical Exam Narrative Exam Narrative: Vital signs reviewed. Patient is alert and orient x 4. Per the family, they are concerned about her going home secondary to her weakness and recurrent falls HEET: Head normocephalic atraumatic, TMs clear bilaterally. Posterior pharynx is clear, moist mucous membranes. Nares clear bilaterally. No signs of head or neck trauma. Neck: Supple with no lymphadenopathy or tenderness. No signs of meningismus. Cardiac: Regular rate and rhythm no murmurs gallops or rubs, equal peripheral pulses bilaterally. Respiratory: Lungs clear to auscultation bilaterally. No chest tenderness. Abdomen: Soft, nontender, nondistended. No abdominal bruit or pulsatile masses. No hepatosplenomegaly Extremities: No peripheral edema, no signs of gross trauma or deformity. Active full range of motion of all extremities. Neuro: Cranial nerves II through XII intact, no focal neurological deficits. NIH stroke scale 0 Skin: Clean dry and intact with no rash, purpura, petechiae, vesicles or pustules. Backs/flank: No CVA tenderness, no midline spinal tenderness, no deformity. Psych: Normal mood and affect. No SI, HI or acute psychosis. Const Vital Signs: 09/02/24 19:18 09/02/24 19:20 09/02/24 19:20 Temperature 98.5 F 98.5 F Temperature Source Oral Oral Pulse Rate 74 74 Respiratory Rate 18 18 Respiratory Effort Normal Respiratory Pattern Normal Blood Pressure 135/80 H 135/80 H Blood Pressure Mean 98 98 Pulse Ox 91 91 Oxygen Delivery Method Room Air Room Air 09/02/24 21:18 Temperature Temperature Source Pulse Rate 71 Respiratory Rate 18 Respiratory Effort Respiratory Pattern Blood Pressure 162/80 H Blood Pressure Mean 107 Pulse Ox 92 Oxygen Delivery Method Room Air <Dr. Dinesh Elizabeth MD - Last Filed: 09/02/24 20:57> Physical Exam Const Vital Signs: 09/02/24 19:18 09/02/24 19:20 09/02/24 19:20 Temperature 98.5 F 98.5 F Temperature Source Oral Oral Pulse Rate 74 74 Respiratory Rate 18 18 Respiratory Effort Normal Respiratory Pattern Normal Blood Pressure 135/80 H 135/80 H Blood Pressure Mean 98 98 Pulse Ox 91 91 Oxygen Delivery Method Room Air Room Air 09/02/24 21:18 Temperature Temperature Source Pulse Rate 71 Respiratory Rate 18 Respiratory Effort Respiratory Pattern Blood Pressure 162/80 H Blood Pressure Mean 107 Pulse Ox 92 Oxygen Delivery Method Room Air MDM <ELMA Ferro - Last Filed: 09/02/24 21:41> MDM Lab Data Labs: Laboratory Results - last 24 hr 09/02/24 09/02/24 19:42 20:31 WBC 8.2 RBC 4.61 Hgb 14.9 Hct 41.2 MCV 89.4 MCH 32.3 H MCHC 36.2 H RDW Std Deviation 38.9 RDW Coeff of [place] 12.0 Plt Count 162 MPV 10.1 Immature Gran % (Auto) 0.400 Neut % (Auto) 83.6 H Lymph % (Auto) 6.0 L [place] % (Auto) 7.4 Eos % (Auto) 1.7 Baso % (Auto) 0.9 Absolute Neuts (auto) 6.8 Absolute Lymphs (auto) 0.49 L Nucleated RBC % 0 Sodium 136 Potassium 3.7 Chloride 104 Carbon Dioxide 24.0 Anion Gap 8 BUN 12 Creatinine 1.36 H Estim Creat Clear Calc 43.15 Est GFR (MDRD) Af Amer 50 L Est GFR (MDRD) Non-Af 41 L BUN/Creatinine Ratio 8.8 L Glucose 250 H Calcium 8.0 L Total Bilirubin 1.20 H AST 7 L ALT < 6 L Alkaline Phosphatase 92 Troponin I High Sens 32 Total Protein 6.7 Albumin 3.4 Globulin 3.3 Albumin/Globulin Ratio 1.0 Urine Color Straw Urine Clarity Cloudy Urine pH 6.0 Ur Specific [place] 1.015 Urine Protein 30 H Urine Glucose (UA) Normal Urine Ketones 5 H Urine Occult Blood 25 H Urine Nitrite Positive H Urine Bilirubin Negative Urine Urobilinogen Normal Ur Leukocyte Esterase 100 H Urine RBC 0 SEEN Urine WBC 25-50 SEEN Ur Squamous Epith Cells 0-5 SEEN Urine Bacteria 3+ Urine Mucus 0 SEEN Radiography Diagnostic Testing: Clinical Impression(s) from Imaging Studies Brain CT 09/02/24 19:30 IMPRESSION: No acute intracranial abnormality. Electronically Signed: Suman Cevallos MD at 20:08 EST , Chest X-Ray 09/02/24 19:38 IMPRESSION: No acute radiographic abnormalities. Electronically Signed: Suman Cevallos MD at 19:56 EST , EKG Normal sinus rhythm: Attestation: I personally reviewed and interpreted this EKG as follows: Interpretation: Sinus Rhythm Comments: Normal sinus rhythm, rate 74 bpm, MN interval 198 ms, QRS duration 90 ms, no acute ST elevation, no acute infarct noted. Treatment and Re-Evaluation :: Differential diagnosis includes however is not limited to: Electrode abnormality, dehydration, hyperglycemia, CVA, TIA, intracranial bleeding secondary to trauma, failure to thrive, depression, worsening Parkinson's disease, medication reaction Patient appears generally well, vital signs are stable, patient is nontoxic- appearing. Presenting to the emergency department after having 2 falls today, difficult to perform daily test, failure to thrive. Patient will receive a full workup including basic laboratory values, CT scan of the brain, two-view chest x-ray. COVID RSV flu as well as urinalysis will be obtained. All radiologic examinations were read, reviewed by the emergency department attending. From these reads, a plan of care will be put in place. Patient on reevaluation did have a fever 100.7, she was given Tylenol. Patient was 87% on room air. Patient was placed on 2 L normal saline. Patient CT scan of the brain, chest x-ray was unremarkable, laboratory eval showed normal CBC, patient's chemistries show a creatinine of 1.36, this seems to be baseline for the patient over the last several years. Glucose 250, patient's urinalysis was positive for infection with 3+ bacteria 25-50 white blood cells, 100 leukocytes, positive nitrites. This was sent for culture, Rocephin was ordered. Patient's respiratory viral panel did show positive for influenza A. Secondary to this f inding, the patient's been hypoxic, weak, falling multiple times a day and being alone. I do believe that the patient needs to be admitted to hospital. I will reach out to hospitalist. <Dr. Dinesh Elizabeth MD - Last Filed: 09/02/24 20:57> MDM MDM Narrative Medical decision making narrative: I have personally performed a face to face assessment of the patient and have reviewed the DUSTIN Note. I performed a substantive portion of the visit including all aspects of the following. My brandt findings include: History is 69-year-old female history of Parkinson's. Had 2 falls today. Family states she has just been off since around [place]. Patient typically does not have a lot of falls. She denies any fever or headache. She denies any abdominal pain. She has developed some diarrhea today. She denies any weakness to her upper or lower extremities. No significant head trauma. Exam is [69-year-old female no acute distress. Vital signs stable afebrile. H EENT exam pupils round react light. Mytrex membranes. No facial droop. No trauma. Neck nontender. Lungs clear. Heart regular rhythm rate about 70 no murmur. Chest wall ribs nontender. Abdomen soft nontender. Moving all 4 extremities. 5 and 5 armament installer strength. Dorsi plantarflexion intact. She is awake and alert. Answering questions following commands.] Medical Decision Making [69-year-old female with a benign exam. CT and labs are being obtained.] Other additions or changes: [None] History & Record Review Discussion w/independent historian: Patient and Family Additional record(s) reviewed:: Prior inpatient record, Prior outpatient record, Prior ED visit and Prior labs Lab Data Attestation: I reviewed the patient's lab results. Lab results narrative: CBC shows a white count 8. H&H 14 and 41. Platelets 162. Electrolytes show a gap of 8. BUN and creatinine 12 and 1.36. Glucose 250. Liver enzymes unremarkable. Labs: Laboratory Results - last 24 hr 09/02/24 09/02/24 19:42 20:31 WBC 8.2 RBC 4.61 Hgb 14.9 Hct 41.2 MCV 89.4 MCH 32.3 H MCHC 36.2 H RDW Std Deviation 38.9 RDW Coeff of [place] 12.0 Plt Count 162 MPV 10.1 Immature Gran % (Auto) 0.400 Neut % (Auto) 83.6 H Lymph % (Auto) 6.0 L [place] % (Auto) 7.4 Eos % (Auto) 1.7 Baso % (Auto) 0.9 Absolute Neuts (auto) 6.8 Absolute Lymphs (auto) 0.49 L Nucleated RBC % 0 Sodium 136 Potassium 3.7 Chloride 104 Carbon Dioxide 24.0 Anion Gap 8 BUN 12 Creatinine 1.36 H Estim Creat Clear Calc 43.15 Est GFR (MDRD) Af Amer 50 L Est GFR (MDRD) Non-Af 41 L BUN/Creatinine Ratio 8.8 L Glucose 250 H Calcium 8.0 L Total Bilirubin 1.20 H AST 7 L ALT < 6 L Alkaline Phosphatase 92 Troponin I High Sens 32 Total Protein 6.7 Albumin 3.4 Globulin 3.3 Albumin/Globulin Ratio 1.0 Urine Color Straw Urine Clarity Cloudy Urine pH 6.0 Ur Specific [place] 1.015 Urine Protein 30 H Urine Glucose (UA) Normal Urine Ketones 5 H Urine Occult Blood 25 H Urine Nitrite Positive H Urine Bilirubin Negative Urine Urobilinogen Normal Ur Leukocyte Esterase 100 H Urine RBC 0 SEEN Urine WBC 25-50 SEEN Ur Squamous Epith Cells 0-5 SEEN Urine Bacteria 3+ Urine Mucus 0 SEEN Radiography Diagnostic Testing: Clinical Impression(s) from Imaging Studies Brain CT 09/02/24 19:30 IMPRESSION: No acute intracranial abnormality. Electronically Signed: Suman Cevallos MD at 20:08 EST , Chest X-Ray 09/02/24 19:38 IMPRESSION: No acute radiographic abnormalities. Electronically Signed: Suman Cevallos MD at 19:56 EST , Discharge Plan Dx/Rx/DC Orders Clinical Impression: Falls, Parkinson's disease, Generalized weakness, Influenza A, Acute UTI, History of diabetes mellitus, Hypoxia Disposition Disposition: Acute Care Hospital [facility]
--- NOTE | 2024-09-02 19:38 | RAD_ITS ---
INDICATION: cough EXAMINATION/TECHNIQUE: X-RAY - XR Chest 2 Views COMPARISON: 03/16/2012. FINDINGS: The lungs are clear. The cardiomediastinal silhouette is unremarkable. No pleural effusion or pneumothorax. Degenerative changes of the thoracic spine. RAD/Chest PA and Lateral IMPRESSION: No acute radiographic abnormalities. Electronically Signed: Suman Cevallos MD at 19:56 EST ,
[2024-09-02 19:49] LABS: Absolute Lymphocyte Count 0.49 X10^3/uL (0.83-4.51); Absolute Neutrophil Count 6.8 X10^3/uL (2.0-7.7); Basophil# 0.07 X10^3/uL; Basophil% 0.9 % (0-1); Eosinophil# 0.14 X10^3/uL; Eosinophils% 1.7 % (0-5); Hematocrit 41.2 % (37-47); Hemoglobin 14.9 g/dL (12.0-15.0); Lymphocyte # 0.49 X10^3/ul (0.83-4.51); Mean Corp Hgb Conc 36.2 g/dL (32-36); Mean Corpuscular Hgb 32.3 pg (27.0-32.0); Mean Corpuscular Volume 89.4 fL (81-99); Mean Platelet Vol. 10.1 fl (6.2-12.0); Monocyte% 7.4 % (0-10); NRBC Flagged by Analyzer 0 % (0-5); Neutrophil # 6.82 X10^3/uL (2.7-7.7); Neutrophil % 83.6 % (47-70); POSITIVE DIFFERENTIAL YES; Platelet Count 162 K/mm3 (150-450); RBC Distribution Width SD 38.9 fl (35.1-43.9); Red Blood Count 4.61 M/mm3 (4.2-5.4); White Blood Count 8.2 K/mm3 (4.4-11.0)
[2024-09-02 20:14] LABS: AST(SGOT) 7 U/L (15-37); Alanine Aminotransfer ALT/SGPT < 6 U/L (13-56); Albumin, Serum 3.4 g/dL (3.2-5.0); Alkaline Phosphatase 92 U/L (45-117); Anion Gap 8 (5-15); BUN 12 mg/dL (7-18); BUN/Creat Ratio 8.8 RATIO (10-20); Chloride 104 mmol/L (98-107); Creatinine, Serum 1.36 mg/dL (0.55-1.02); EST Glomerular Filtration Rate 41 mL/min (>60); Est Glom Filt Rate - Afr Amer 50 mL/min (>60); Estimated Creatinine Clearance 43.15 ml/min; Globulin 3.3 g/dL (2.2-4.2); Glucose 250 mg/dL (74-106); Potassium 3.7 mmol/L (3.5-5.1); Protein, Total 6.7 g/dL (6.4-8.2); Sodium Level 136 mmol/L (136-145); Troponin-I HS 32 pg/mL (3.0-54.0)
[2024-09-02 20:35] LABS: Mucous, Urine 0 SEEN /hpf (<or=2+); Red Blood Cells-Urine 0 SEEN /hpf (0-5)
[2024-09-02 20:43] LABS: Color, Urine Straw (Yellow); Glucose, Dipstick Normal (Normal); Ketone-Dipstick 5 mg/dl (Negative); Leukocyte Esterase-Dipstick 100 /ul (Negative); Nitrite-Dipstick Positive (Negative); Occult Blood-Urine 25 /ul (Negative); Protein-Dipstick 30 mg/dl (Negative); Specific Gravity, Urine 1.015 (1.002-1.030); Urine Bilirubin Dipstick Negative (Negative); Urine Clarity Cloudy (Clear); Urine Urobilinogen Normal (Normal)
[2024-09-02 21:18] VITALS: BP 162/80; PULSE 71; RESP 18; O2SAT 92
[2024-09-02 21:34] LABS: Bacteria 3+ /hpf (None Seen); Squamous Epithelial Cells - UA 0-5 SEEN /hpf (5-10); White Blood Cells 25-50 SEEN /hpf (0-5)
--- NOTE | 2024-09-02 21:40 | HP.PCM.HOS_ITS ---
HPI - General General Date of Admission: 09/02/24 Date of Service: 09/02/24 Chief Complaint: Falls, malaise, weakness. HPI Narrative The patient is a 69 y/o F w/ PMHx: CKD unclear staging/subtype, possible II versus III, Anxiety and Depression, RLS, Hx CVA, Parkinson's disease w/ mild cognitive impairment, COPD, HTN, HLD, Diabetes mellitus type II with chronic neuropathy, Former EtOH/Polysubstance Abuse Sober/Clean, Tobacco use who presents to the [facility] ED on 09/02/24 with history of weakness, 2 falls on day of presentation with decline over the last month with difficulty even using her walker or cane living alone checked on by a neighbor today and given her falls prompted them to call EMS. She does report a history of dysuria and urinary frequency over the last week. She denied any fevers or chills although in the ED her temperature did rise to 99.5 orally. She notes on day of presentation she started to have mild cough that is dry, rhinorrhea, mild congestion and dyspnea worse with exertion. She notes no specific recent ill contacts but she does smoke frequently outside with several individuals in her neighborhood. Workup in the ED included T98.5, heart 74, BP 135/80, respiratory rate 18, 91% on room air-> eventually desaturating down to 85% on room air improving to 97% on 2 L nasal cannula specifically occurring at rest of note, CBC with WBC 8.2, hemoglobin 14.9, platelet 162 with lymphopenia, CMP with BUN/[place] 12/1.26, GFR 41, glucose 250, T. bili 1.20 otherwise hepatic profile not marked appearing, troponin 32, chest x-ray with no acute cardiopulmonary findings, CT of the brain with no acute intracranial findings, rapid SARS COVID/influenza/RSV PCR with positive influenza A, urinalysis with specific remedy 1.015, protein 30, ketone 5, occult blood 25, positive nitrite, leukocyte esterase 100 with urine WBCs 25- 50 with 3+ urine bacteria, urine culture pending per ED. In the ED patient ministered Tylenol 1000 mg p.o. x 1 and Rocephin 1 g IV x 1. [facility] Medical History Tobacco use Anxiety and depression CKD (chronic kidney disease) History of drug abuse Diabetes mellitus type 2 in nonobese Venous insufficiency Hypertension Hyperlipidemia Recovering alcoholic Restless legs syndrome Parkinson's disease Mild cognitive impairment Polyneuropathy COPD (chronic obstructive pulmonary disease) Osteoarthritis Neuropathy Heart murmur High triglycerides Cataracts, bilateral Back problem Arthritis Home Medications ?Medication ?Instructions ?Recorded ?Last Taken ?Type fluoxetine 20 mg capsule (Prozac) 20 mg PO DAILY 10/18/16 10/18/16 History magnesium 250 mg tablet 250 mg PO DAILY 10/18/16 10/18/16 History simvastatin 40 mg tablet 40 mg PO QHS 10/18/16 10/16/16 History trazodone 150 mg tablet 150 mg PO QHS 10/18/16 10/17/16 History albuterol sulfate 90 mcg/actuation 1 - 2 puff inhalation Q4H PRN PRN 05/25/19 Unknown History aerosol inhaler Sob &/Or Wheezing amlodipine 5 mg tablet 5 mg PO DAILY 05/25/19 06/21/19 05:00 History 5 MG bupropion HCl 100 mg tablet,12 hr 100 mg PO DAILY 05/25/19 05/26/19 04:30 History sustained-release 100 MG bupropion HCl 100 mg tablet,12 hr 200 mg PO QHS 05/25/19 Unknown History sustained-release buspirone 5 mg tablet 5 mg PO BID 05/25/19 06/21/19 05:00 History 5 MG losartan 100 1 ea PO DAILY 05/25/19 Unknown History mg-hydrochlorothiazide 25 mg tablet metformin 1,000 mg 24 hr 1,000 mg PO BID 05/25/19 Unknown History tablet,extended release (gastric reten.) gabapentin 300 mg capsule 300 mg PO TID 12/04/21 Unknown History potassium chloride 10 mEq 10 meq PO BID 12/04/21 Unknown History capsule,extended release carbidopa 25 mg-levodopa 100 See Rx Instructions PO TID #405 07/27/24 Unknown Rx mg-entacapone 200 mg tablet tabs ropinirole 1 mg tablet 1 mg PO QHS #90 tabs 07/27/24 Unknown Rx amantadine HCl 100 mg capsule 100 mg PO QDAY #90 caps 08/09/24 Unknown Rx alendronate 70 mg tablet mg PO 09/02/24 Unknown History buspirone 10 mg tablet mg 3XD 09/02/24 Unknown History fluoxetine 10 mg capsule mg DAILY 09/02/24 Unknown History glipizide 5 mg tablet mg 09/02/24 Unknown History Allergy/AdvReac Type Severity Reaction Status Date / Time Latex, Natural Rubber Allergy Severe Shortness Verified 07/27/24 10:50 of breath Penicillins AdvReac Severe Hives Verified 07/27/24 10:50 Family History (Updated 09/02/24 @ 22:[address] Genna Ibrahim MD) Mother Alcoholism Anxiety Father High cholesterol Heart disease CAD (coronary artery disease) Myocardial infarction Other Arthritis Bowel disease Parkinson disease Surgical History History of hysterectomy Social History household members: none Smoking Status: Current every day smoker tobacco type: cigarettes Smoking packs per day: 1.5 Smoking cigarettes per day: 30.0 Tobacco: How many years used: 34 alcohol intake: former details: Been clean for 25 years substance use type: former substance user what type of physical activity do you participate in: walking frequency: daily carlo/scientologist: Yarsanism seatbelt use: always ROS ROS Narrative Admission Review of Systems: CONSTITUTIONAL: No weight loss, fever, chills, + weakness or fatigue. HEENT: + Congestion, rhinorrhea, sneezing. Eyes: No visual loss, blurred vision, double vision or yellow sclerae. Ears, Nose, Throat: No hearing loss. SKIN: No rash or itching, lesions, wounds. CARDIOVASCULAR: No chest pain, chest pressure or chest discomfort, palpitations, edema, orthopnea, syncopal events. RESPIRATORY: + Dyspnea, nonproductive cough. No marked wheezing or hemoptysis. GASTROINTESTINAL: + Decreased appetite. No nausea, vomiting or diarrhea, abdominal pain, melena, BRBPR. GENITOURINARY: + Dysuria and frequency. No urgency or retention. NEUROLOGICAL: No headache, dizziness, syncope, paralysis, ataxia, numbness or tingling in the extremities, focal weakness, change in bowel or bladder control, seizure. MUSCULOSKELETAL: + muscle, back pain, joint pain or stiffness. HEMATOLOGIC: No anemia, bleeding or bruising. LYMPHATICS: No enlarged nodes. No history of splenectomy. PSYCHIATRIC: + History of anxiety and depression. ENDOCRINOLOGIC: No reports of sweating, cold or heat intolerance. No polyuria or polydipsia. ALLERGIES: + History of hives, allergic rhinitis. Vital Signs Vital Signs Vital Signs: 09/02/24 19:18 09/02/24 19:20 09/02/24 19:20 Temperature 98.5 F 98.5 F Temperature Source Oral Oral Pulse Rate 74 74 Respiratory Rate 18 18 Respiratory Effort Normal Respiratory Pattern Normal Blood Pressure 135/80 H 135/80 H Blood Pressure Mean 98 98 Pulse Ox 91 91 Oxygen Delivery Method Room Air Room Air 09/02/24 21:18 Temperature Temperature Source Pulse Rate 71 Respiratory Rate 18 Respiratory Effort Respiratory Pattern Blood Pressure 162/80 H Blood Pressure Mean 107 Pulse Ox 92 Oxygen Delivery Method Room Air Weight Weight: 194 lb 7.163 oz Body Mass Index (BMI) 33.3 Physical Exam Narrative Physical Examination: General: Awake, alert, oriented x 3 and cooperative, seated upright in the ED bed, no acute distress, fatigued and mildly ill-appearing. Skin: Normal color, normal turgor, no icterus, no cyanosis except occasional stage ecchymoses, abrasion likely from recent falls HEENT: AT/NC, EOMI, PERRLA, moderately dry MM, no carotid bruits or JVD noted. Lungs: Diminished, greater bases, mildly increased respiratory rate but no distress, no appreciated rales, ronchi or wheezing. Heart: Regular rate and rhythm; no gallop, rub audible. Abdomen: Soft, obese, NTTP, ND, mildly hyperactive BS, no appreciated HSM. Extremities: No cyanosis, clubbing, or edema. Neurological: Patient awake, alert, oriented as noted, cognitive function intact; pupils equally reactive to light and accommodation, cranial nerves grossly normal, moving all 4 extremities, no focal deficits, strength moderately to severely globally decreased. Psychiatric: Affect appears flat, fatigued, mildly ill-appearing, no acute evidence of depressive or anxiety feelings but does have underlying history. Results Lab / Micro Data 09/02/24 19:42 09/02/24 19:42 Labs: Laboratory Results - last 24 hr 09/02/24 19:42: WBC 8.2, RBC 4.61, Hgb 14.9, Hct 41.2, MCV 89.4, MCH 32.3 H, M CHC 36.2 H, RDW Std Deviation 38.9, RDW Coeff of [place] 12.0, Plt Count 162, MPV 10.1, Immature Gran % (Auto) 0.400, Neut % (Auto) 83.6 H, Lymph % (Auto) 6.0 L, [place] % (Auto) 7.4, Eos % (Auto) 1.7, Baso % (Auto) 0.9, Absolute Neuts (auto) 6.8, Absolute Lymphs (auto) 0.49 L, Nucleated RBC % 0, Sodium 136, Potassium 3.7, Chloride 104, Carbon Dioxide 24.0, Anion Gap 8, BUN 12, Creatinine 1.36 H, Estim Creat Clear Calc 43.15, Est GFR (MDRD) Af Amer 50 L, Est GFR (MDRD) Non-Af 41 L, BUN/Creatinine Ratio 8.8 L, Glucose 250 H, Calcium 8.0 L, Total Bilirubin 1.20 H, AST 7 L, ALT < 6 L, Alkaline Phosphatase 92, Troponin I High Sens 32, Total Protein 6.7, Albumin 3.4, Globulin 3.3, Albumin/Globulin Ratio 1.0 09/02/24 20:31: Urine Color Straw, Urine Clarity Cloudy, Urine pH 6.0, Ur Specific [place] 1.015, Urine Protein 30 H, Urine Glucose (UA) Normal, Urine Ketones 5 H, Urine Occult Blood 25 H, Urine Nitrite Positive H, Urine Bilirubin Negative, Urine Urobilinogen Normal, Ur Leukocyte Esterase 100 H, Urine RBC 0 SEEN, Urine WBC 25-50 SEEN, Ur Squamous Epith Cells 0-5 SEEN, Urine Bacteria 3+, Urine Mucus 0 SEEN Micro: Microbiology 09/02/24 19:35 Mucosa - Nose SARS-CoV-2, Influenza & RSV (PCR) - Final Influenzae A Imaging Radiology Impression Brain CT 09/02/24 19:30 IMPRESSION: No acute intracranial abnormality. Electronically Signed: Suman Cevallos MD at 20:08 EST , Chest X-Ray 09/02/24 19:38 IMPRESSION: No acute radiographic abnormalities. Electronically Signed: Suman Cevallos MD at 19:56 EST , Assessment & Plan Assessment/Plan (1) Influenza A: (2) Acute UTI: (3) Hypoxia: PLAN: Plan The patient is a 69 y/o F w/ PMHx: CKD unclear staging/subtype, possible II versus III, Anxiety and Depression, RLS, Hx CVA, Parkinson's disease w/ mild cognitive impairment, COPD, HTN, HLD, Diabetes mellitus type II with chronic neuropathy, Former EtOH/Polysubstance Abuse Sober/Clean, Tobacco use who presents to the [facility] ED on 09/02/24 with history of weakness, 2 falls on day of presentation with decline over the last month with difficulty even using her walker or cane living alone checked on by a neighbor today w/ recent dysuria and urinary frequency over the last week and also on day of presentation she started to have mild cough that is dry, rhinorrhea, mild congestion and dyspnea worse with exertion. #1. Mechanical falls, adult failure to thrive secondary to Acute Hypoxia secondary to Acute Influenza A Viral Syndrome in addition to #2 acute complicated urinary tract infection: Will admit to [facility] given stable vital signs, maintain on oxygen with wean as tolerated, continue ATC budesonide, PRN albuterol, given timeline will initiate and maintain on Tamiflu with dosing per pharmacy given underlying chronic renal dysfunction as noted, HOB, IS parameters w/ pending Bld cx x 2 from ED. PT/OT/case management consulted for discharge planning. #2. Acute Complicated Urinary Tract Infection: UA upon ED evaluation remarkable, pending UCx, will maintain on judicious IVFs, monitor I/Os, continue IV Rocephin w/ transition as able pending sensitivities and speciation. #3. Parkinson's disease with mild cognitive impairment: Complicates presentation, maintain on fall precautions, PT/OT/case management consulted as noted, we will continue patient carbidopa/levodopa/entacapone/amantadine home regimen. #4. Mild hyperbilirubinemia, appears chronic: Admission CMP with T. bili 1.20, AST/LT 7/less than 6, alk phos 92, previous T. bili mildly elevated also in 2021, will continue to trend CMP, unclear exact etiology but prior history of polysubstance abuse and alcohol abuse. #5. Chronic COPD: Encourage cigarette tobacco cessation, will maintain on ATC budesonide therapy, PRN albuterol, HOB, IS parameters. #6. Hypertension: Continue home regimen including amlodipine, losartan, temporally holding hydrochlorothiazide with judicious hydration with resumption once appropriate, PRN hydralazine. #7. Hyperlipidemia: We will continue patient on statin therapy. #8. Chronic Kidney Disease Stage II versus stage III, unclear exact staging as has vacillated, per GFR trending: Admission BUN/Cr 07/11.36, GFR 41 however previously had been stage II, baseline renal function more recently primarily 0.9 however the last lab was noted in 2021 the certainly could have progressed, repeat BMP in AM to further elucidate chronicity staging. #9. Diabetes mellitus type II with chronic neuropathy: Hold oral home regimen, continue home gabapentin regimen, ADA diet, accu checks w/ ISS. #10. History CVA: Will continue aspirin, statin, hypertensive regimen with adjustments as noted, diabetic regimen with adjustments as noted temporarily. #11. Anxiety and depression: We will continue patient home fluoxetine, bupropion, trazodone and BuSpar home regimen with hold for sedation. #12. Restless leg syndrome: We will continue patient on Requip regimen. #13. Tobacco Abuse: Encouraged cessation, inpatient consultation per RT, NR if desired. #14. Former alcohol/polysubstance abuse: Reports clean and sober status, encourage continuation, UDS requested to be cautious. #15. DVT prophylaxis: Lovenox. #16. CODE status: Patient JORDAN is her son and living will is currently in place. Discussed CODE status at length including difference between FULL code, DNR-CCA and DNR-CC status. Following discussions about the differences in these status, requested Full Code status. Advanced Care Planning Face to Face Time: 16 minutes. Charges/Coding Visit Charges Inpatient E&M: 47926 Init Hosp L3 Procedures Hospitalists Procedures: 74338 Advncd Care Plan 30 Min
[2024-09-02 21:45] VITALS: O2SAT 85
[2024-09-02] MEDS: Acetaminophen 500 MG Tablet 1000 MG PO (21:45)
[2024-09-02 21:47] VITALS: BP 174/87; PULSE 71; RESP 18; TEMP 37.5; O2SAT 97
[2024-09-02] MEDS: Ceftriaxone 1 GM/50 ML BAG IV (22:09)
[2024-09-02 22:16] LABS: Magnesium 1.5 mg/dL (1.6-2.6); Phosphorus 1.7 mg/dL (2.5-4.9)
[2024-09-02 22:24] LABS: Amphetamine Urine VISTA NEGATIVE (<1000 ng/mL); Barbiturate Urine VISTA NEGATIVE (< 200 ng/mL); Benzodiazepine Urine VISTA NEGATIVE (< 200 ng/mL); Cocaine Urine VISTA NEGATIVE (< 300 ng/mL); Ecstacy Urine VISTA NEGATIVE (< 500 ng/mL); Methadone Urine VISTA NEGATIVE (< 300 ng/mL); PCP Urine VISTA NEGATIVE (< 25 ng/mL); THC Urine VISTA NEGATIVE (< 50 ng/mL); Vista UDS pH Range 5
[2024-09-02 22:37] VITALS: BMI 31.2
[2024-09-02] MEDS: 0.9% Normal Saline (1000mL) 1,000 ML 100 ML IV (22:51)
[2024-09-02 22:53] VITALS: BP 110/63; PULSE 63; RESP 16; TEMP 37; O2SAT 94
[2024-09-02] MEDS: Gabapentin 300 MG Capsule PO (23:12)
[2024-09-02] MEDS: busPIRone 5 MG Tablet PO (23:12)
[2024-09-02] MEDS: Potassium Chloride Oral Tablet 10 MEQ PO (23:12)
[2024-09-02] MEDS: Atorvastatin Calcium 20 MG Tablet PO (23:12)
[2024-09-02] MEDS: Oseltamivir Phosphate 75 MG Capsule PO (23:12)
[2024-09-02] MEDS: traZODone 100 MG Tablet 150 MG PO (23:13)
[2024-09-02] MEDS: Pramipexole Di-HCl 0.5 MG Tablet PO (23:13)
[2024-09-02] MEDS: CARBIDOPA PO (23:22)
[2024-09-02] MEDS: ENTACAPONE PO (23:22)
[2024-09-02] MEDS: LEVODOPA PO (23:22)
[2024-09-02] MEDS: Insulin Lispro 100 UNIT/ML INSULN.PEN SC (23:29)
[2024-09-02 23:43] LABS: Bedside Glucose 182 mg/dL (74-106)
[2024-09-03 06:01] VITALS: BP 132/64; PULSE 62; RESP 18; TEMP 36.8; O2SAT 97
[2024-09-03 06:04] VITALS: BMI 31.9
[2024-09-03] MEDS: LEVODOPA PO ×3 (06:14→21:28)
[2024-09-03] MEDS: CARBIDOPA PO ×3 (06:14→21:28)
[2024-09-03] MEDS: ENTACAPONE PO ×3 (06:14→21:28)
[2024-09-03] MEDS: Gabapentin 300 MG Capsule PO ×3 (06:14→21:27)
[2024-09-03] MEDS: Insulin Lispro 100 UNIT/ML INSULN.PEN SC ×2 (06:15→12:00)
[2024-09-03 06:37] LABS: Bedside Glucose 180 mg/dL (74-106)
[2024-09-03 06:59] LABS: Absolute Lymphocyte Count 0.77 X10^3/uL (0.83-4.51); Absolute Neutrophil Count 5.2 X10^3/uL (2.0-7.7); Basophil# 0.06 X10^3/uL; Basophil% 0.9 % (0-1); Eosinophil# 0.02 X10^3/uL; Eosinophils% 0.3 % (0-5); Hematocrit 38.6 % (37-47); Hemoglobin 13.7 g/dL (12.0-15.0); Lymphocyte # 0.77 X10^3/ul (0.83-4.51); Lymphocyte % 11.3 % (19-41); Mean Corp Hgb Conc 35.5 g/dL (32-36); Mean Corpuscular Hgb 32.3 pg (27.0-32.0); Mean Platelet Vol. 10.3 fl (6.2-12.0); Monocyte# 0.76 X10^3/uL; Monocyte% 11.1 % (0-10); NRBC Flagged by Analyzer 0 % (0-5); Neutrophil # 5.18 X10^3/uL (2.7-7.7); Neutrophil % 75.7 % (47-70); Platelet Count 137 K/mm3 (150-450); RBC Distribution Width CV 12.2 % (11.6-14.6); RBC Distribution Width SD 40.8 fl (35.1-43.9); Red Blood Count 4.24 M/mm3 (4.2-5.4); White Blood Count 6.8 K/mm3 (4.4-11.0)
[2024-09-03 07:35] VITALS: O2SAT 93
--- NOTE | 2024-09-03 07:35 | CPS ---
Pt doesn't take any inhaled steroids at home and declined them her. RT will contact
[2024-09-03 08:07] LABS: ALB/GLOB Ratio 0.8 RATIO (0.9-2.4); AST(SGOT) < 3 U/L (15-37); Alanine Aminotransfer ALT/SGPT < 6 U/L (13-56); Albumin, Serum 2.9 g/dL (3.2-5.0); Alkaline Phosphatase 77 U/L (45-117); Anion Gap 4 (5-15); BUN 15 mg/dL (7-18); BUN/Creat Ratio 9.9 RATIO (10-20); Calcium,Total 7.4 mg/dL (8.5-10.1); Chloride 110 mmol/L (98-107); Creatinine, Serum 1.51 mg/dL (0.55-1.02); EST Glomerular Filtration Rate 37 mL/min (>60); Est Glom Filt Rate - Afr Amer 44 mL/min (>60); Estimated Creatinine Clearance 38.09 ml/min; Globulin 3.5 g/dL (2.2-4.2); Glucose 181 mg/dL (74-106); Potassium 3.9 mmol/L (3.5-5.1); Protein, Total 6.4 g/dL (6.4-8.2); Sodium Level 136 mmol/L (136-145)
[2024-09-03 11:01] VITALS: BP 114/61; PULSE 61; RESP 18; TEMP 37.2; O2SAT 93
[2024-09-03] MEDS: busPIRone 5 MG Tablet PO ×2 (11:43→21:27)
[2024-09-03] MEDS: Potassium Chloride Oral Tablet 10 MEQ PO ×2 (11:43→21:27)
[2024-09-03] MEDS: Aspirin 81 MG TAB.CHEW PO (11:43)
[2024-09-03] MEDS: FLUoxetine 20 MG Capsule PO (11:44)
[2024-09-03] MEDS: Enoxaparin 40 MG/0.4 ML Syringe SC (11:44)
[2024-09-03] MEDS: Amantadine 100 MG Capsule PO (11:44)
[2024-09-03] MEDS: amLODIPine 5 MG Tablet PO (11:44)
[2024-09-03] MEDS: Oseltamivir Phosphate 30 MG Capsule PO ×2 (11:45→21:27)
[2024-09-03] MEDS: Glucerna Shake 120 ML LIQUID PO (12:03)
--- NOTE | 2024-09-03 12:09 | CASEMGMT ---
EVON BUSTAMANTE Assessment Face to Face with patient for initial transition planning/care coordination assessment. EVON BUSTAMANTE introduced self and role at [facility], pt voices understanding. Pt is A&Ox4 and is resting comfortably in the chair and is calm. Care providers, pharmacy, and demographics verified. Admitting dx: Falls, UTI, Influenza A, Adult FTT LACE Strata: 2 PCP:[facility] Specialists: Denies Preferred Pharmacy: [facility] Insurance: [employer] MCR, [employer] Prescription Benefit: Yes LNOK: Rodney Price (Son) Living Arrangements: Pt lives alone in a ground level apartment with a flat entrance ADLs/IADLs: Pt reports that she is mainly independent but that she has Private Duty Aides that come every MWF and assist with cleaning and showering Transportation: Pt does not drive. Pt states that her family drives her and denies concerns DME: Functioning BGM with sufficient supplies. Cane. FWW. BP Machine. Pt may qualify for home oxygen use. A verbal list of local in-network DME companies were provided to the pt at this time. Pt prefers [facility]. HHC/SNF: Denies skilled Hx or needs Pt?s goal: Return home Plan: Home, follow for oxygen needs. Pt states that she feels safe returning home alone at the time of DC with the continuation of her Pvt Duty Aid and denies the need for skilled HH, OP Tx, or CCN. However, PT and OT are ordered and evaluations are pending. Pt denies further concerns at this time. CM to follow. Roberto Nuñez RN, CM
[2024-09-03 12:22] LABS: Bedside Glucose 159 mg/dL (74-106)
--- NOTE | 2024-09-03 14:41 | CHAPLAIN ---
Type of Pastoral Visit _x__ Initial Visit ___ Follow-up Visit ___ On-call Visit ___ General Patient Visit ___ Spiritual Assessment ___ Family Conference ___ Bereavement ___ Rapid Response ___ Code Blue ___ Other (describe below) Pastoral Care Referral From _x__ Patient ___ Family ___ Nurse ___ Physician ___ Senior Oracle Pl Sql Developer ___ Slubber Frame Changer ___ Other (describe below) Sacrament/Intervention _x__ Active listening ___ Anointing ___ Scientology ___ Bereavement ___ Communion ___ Lissa exploration ___ ___ Life review ___ Prayer ___ Reconciliation ___ Sacrament of Sick _x__ Supportive presence ___ Wedding ___ Other (describe below) Pastoral Comments patient explains her situation and about son bringing her into hospital last night; pt acknowledges that she is having testing done but that she is fine and has no concerns at this time
--- NOTE | 2024-09-03 15:07 | PN_ITS ---
Subjective Subjective Patient seen and examined. She complained of still feeling weak and tired. She denied any chest pain, palpitations, dizziness, nausea, vomiting or any other symptoms. Objective Data Objective Data Vital Signs: Vital Signs Temp Pulse Resp BP Pulse Ox O2 Del Method O2 Flow Rate 98.2 F 62 18 132/64 H 93 Nasal Cannula 2 09/03/24 06:01 09/03/24 06:01 09/03/24 06:01 09/03/24 06:01 09/03/24 07:35 09/03/24 09:29 09/03/24 09:29 Oxygen Flow Rate (L/min) 2 Oxygen Delivery Method Nasal Cannula Weight: 186 lb 15.232 oz Body Mass Index (BMI) 31.9 Intake & Output: Intake and Output for Last 24 Hours 09/01/24 09/02/24 09/03/24 23:59 23:59 23:59 Intake Total 50 / 50 1200 / 1200 Balance 50 / 50 1200 / 1200 Lab / Micro Data 09/03/24 06:41 09/03/24 06:41 Labs: Laboratory Results - last 24 hr 09/02/24 19:42: WBC 8.2, RBC 4.61, Hgb 14.9, Hct 41.2, MCV 89.4, MCH 32.3 H, M CHC 36.2 H, RDW Std Deviation 38.9, RDW Coeff of Saida 12.0, Plt Count 162, MPV 10.1, Immature Gran % (Auto) 0.400, Neut % (Auto) 83.6 H, Lymph % (Auto) 6.0 L, [place] % (Auto) 7.4, Eos % (Auto) 1.7, Baso % (Auto) 0.9, Absolute Neuts (auto) 6.8, Absolute Lymphs (auto) 0.49 L, Nucleated RBC % 0, Sodium 136, Potassium 3.7, Chloride 104, Carbon Dioxide 24.0, Anion Gap 8, BUN 12, Creatinine 1.36 H, Estim Creat Clear Calc 43.15, Est GFR (MDRD) Af Amer 50 L, Est GFR (MDRD) Non-Af 41 L, BUN/Creatinine Ratio 8.8 L, Glucose 250 H, Calcium 8.0 L, Phosphorus 1.7 L , Magnesium 1.5 L, Total Bilirubin 1.20 H, AST 7 L, ALT < 6 L, Alkaline Phosphatase 92, Troponin I High Sens 32, Total Protein 6.7, Albumin 3.4, Globulin 3.3, Albumin/Globulin Ratio 1.0 09/02/24 20:31: Urine Color Straw, Urine Clarity Cloudy, Urine pH 6.0, Ur Specific [place] 1.015, Urine Protein 30 H, Urine Glucose (UA) Normal, Urine Ketones 5 H, Urine Occult Blood 25 H, Urine Nitrite Positive H, Urine Bilirubin Negative, Urine Urobilinogen Normal, Ur Leukocyte Esterase 100 H, Urine RBC 0 SEEN, Urine WBC 25-50 SEEN, Ur Squamous Epith Cells 0-5 SEEN, Urine Bacteria 3+, Urine Mucus 0 SEEN, Urine Opiates Screen NEGATIVE, Urine Methadone Screen NEGATIVE, Ur Barbiturates Screen NEGATIVE, Ur Phencyclidine Scrn NEGATIVE, Ur Amphetamines Screen NEGATIVE, MDMA (Ecstasy) Screen NEGATIVE, U Benzodiazepines Scrn NEGATIVE, Urine Cocaine Screen NEGATIVE, U Cannabinoids Screen NEGATIVE, Ur Drug Screen Comment 09/02/24 23:21: POC Glucose 182 H 09/03/24 06:08: POC Glucose 180 H 09/03/24 06:41: WBC 6.8, RBC 4.24, Hgb 13.7, Hct 38.6, MCV 91.0, MCH 32.3 H, MCHC 35.5, RDW Std Deviation 40.8, RDW Coeff of [place] 12.2, Plt Count 137 L, MPV 10.3, Immature Gran % (Auto) 0.700, Neut % (Auto) 75.7 H, Lymph % (Auto) 11.3 L, [place] % (Auto) 11.1 H, Eos % (Auto) 0.3, Baso % (Auto) 0.9, Absolute Neuts (auto) 5.2, Absolute Lymphs (auto) 0.77 L, Nucleated RBC % 0, Sodium 136, Potassium 3.9, Chloride 110 H, Carbon Dioxide 22.0, Anion Gap 4 L, BUN 15, Creatinine 1.51 H, Estim Creat Clear Calc 38.09, Est GFR (MDRD) Af Amer 44 L, Est GFR (MDRD) Non-Af 37 L, BUN/Creatinine Ratio 9.9 L, Glucose 181 H, Calcium 7.4 L, Total Bilirubin 1.00, AST < 3 L, ALT < 6 L, Alkaline Phosphatase 77, Total Protein 6.4, Albumin 2.9 L, Globulin 3.5, Albumin/Globulin Ratio 0.8 L 09/03/24 11:59: POC Glucose 159 H Micro: Microbiology 09/02/24 20:31 Urine, Clean Catch Urine Culture - Preliminary GNR lactose web consultant 09/02/24 19:35 Mucosa - Nose SARS-CoV-2, Influenza & RSV (PCR) - Final Influenzae A Radiography Diagnostic Testing: Radiology Impression Brain CT 09/02/24 19:30 IMPRESSION: No acute intracranial abnormality. Electronically Signed: Suman Cevallos MD at 20:08 EST , Chest X-Ray 09/02/24 19:38 IMPRESSION: No acute radiographic abnormalities. Electronically Signed: Suman Cevallos MD at 19:56 EST , Physical Exam Const alert, oriented x3 and no apparent distress Constitutional Narrative: flat affect, lethargic General Appearance: cooperative HEENT normocephalic, head/scalp atraumatic and moist oral mucous membranes Eyes PERRL and EOMs intact bilaterally Neck no lymphadenopathy and supple Lymph Lymphatic: no lymphadenopathy noted and no lymphedema noted Resp Resp Narrative: mildly diminished breath sounds bibasally, no wheezes or crackles. On 2L of oxygen by nasal canula Cardio regular rate, regular rhythm, S1 normal heart sound, S2 normal heart sound and no murmurs GI normal to inspection, nondistended, normoactive bowel sounds, soft to palpation, non-tender and non-distended Extremity normal capillary refill, no clubbing, cyanosis or edema and no calf tenderness General Extremity: no tenderness to palpation of joints or extremities Skin General Skin Exam: no breakdown Neuro CN's II-XII intact bilaterally, no focal motor deficits and no sensory deficits noted Motor Exam: general weakness Psych thought process normal and cooperative Appearance: appropriate Assessment & Plan Assessment/Plan (1) Hypoxia: (2) Influenza A: (3) Acute UTI: (4) Generalized weakness: (5) Falls: PLAN: Plan #Debility due to mechanical falls * PT/OT on board * fall precautions * #Hypoxia due to Acute influenza A infection * on 2L of oxygen by nasal canula * on tamiflu, renally dosed * breathing treatment with bronchodilators * titrate oxygen to maintain sats >90% #ACute complicated UTI * on IV rocephin. * urine cultures growing gram negative florencia lactose web consultant, speciation is pending. Adjust antibiotics based on sensitivities #History of Parkinson's disease with mild cognitive impairment * on levodopa-cabidopa, entacapone and amantadine * #Hypertension: on amlodipine and losartan. HCTZ held on admission. ISS. Accuchecks ACHS # [place]: * Creatinine was 1.36 on admission. * Baseline creatinine from 2021 0.96. * Creatinine up to 1.51 today. * Hydrate gently with IV fluids and trend creatinine. #Type 2 diabetes mellitus with chronic neuropathy: On gabapentin. All meds on hold. Insulin sliding scale. Accuchecks ACHS. #Anxiety and depression: on fluoxetine, bupropion, trazodone and buspar. #Restless leg syndrome: on requip #nicotine dependence: counseled to quit. Nicotine patch as needed. #History of CVA: on aspirin, statin. DVT prophylaxis: lovenox Charges/Coding Visit Charges Inpatient E&M: 36943 Subs Hosp L2
[2024-09-03 15:41] VITALS: BP 130/69; PULSE 67; RESP 18; TEMP 38.3; O2SAT 90
[2024-09-03] MEDS: Acetaminophen 325 MG Tablet 650 MG PO (15:43)
[2024-09-03] MEDS: 0.9% Normal Saline (1000mL) 1,000 ML 100 ML IV (15:45)
--- NOTE | 2024-09-03 15:47 | CASEMGMT ---
Social Work Pt has services through [facility]. Raw Stock Drier Tender is Kenya Vang (p [phone], f [phone]). Pt has an emergency response system and a home health aid MWF for 2 hours each day. [facility] to be notified of discharge. Green Sheet on chart. RAYMON Meng
[2024-09-03] MEDS: 0.9% Saline Lock 10 ML Syringe IV (15:55)
[2024-09-03 17:12] LABS: Bedside Glucose 136 mg/dL (74-106)
[2024-09-03] MEDS: Ceftriaxone 1 GM/50 ML BAG IV (21:26)
[2024-09-03] MEDS: traZODone 100 MG Tablet 150 MG PO (21:27)
[2024-09-03] MEDS: Pramipexole Di-HCl 0.5 MG Tablet PO (21:27)
[2024-09-03] MEDS: Atorvastatin Calcium 20 MG Tablet PO (21:27)
[2024-09-03] MEDS: Mag Hydrox/Al Hydrox/Simeth 30 ML UDC PO (21:29)
[2024-09-03 21:30] VITALS: BP 91/56; PULSE 65; RESP 18; TEMP 37.1; O2SAT 95
[2024-09-03 22:29] LABS: Bedside Glucose 143 mg/dL (74-106)
[2024-09-03 22:50] VITALS: BP 124/57; PULSE 60; RESP 18; TEMP 37.1; O2SAT 95
[2024-09-04] VITALS (8 sets, daily range): BP systolic 105–167; BP diastolic 66–104; PULSE 55–81; RESP 18–20; TEMP 36.6–36.9; O2SAT 95–98; BMI 32.5
--- NOTE | 2024-09-04 01:50 | PCM.HOSP.N ---
Hospitalist Note Patient with onset per staff profound diarrhea. She does have influenza A and is on antibiotic therapy for possible UTI as well. Certainly could be antibiotic associated but not necessarily C. difficile however given profound nature of it we will obtain C. difficile to be cautious but low suspicion. If this is negative would be able to initiate antidiarrheal regimen.
[2024-09-04] MEDS: 0.9% Normal Saline (1000mL) 1,000 ML 100 ML IV (01:56)
[2024-09-04] MEDS: Loperamide 2 MG Capsule PO (03:29)
[2024-09-04] MEDS: Gabapentin 300 MG Capsule PO ×3 (06:18→22:05)
[2024-09-04] MEDS: CARBIDOPA PO ×3 (06:21→22:06)
[2024-09-04] MEDS: LEVODOPA PO ×3 (06:21→22:06)
[2024-09-04] MEDS: ENTACAPONE PO ×3 (06:21→22:06)
[2024-09-04 06:40] LABS: Bedside Glucose 118 mg/dL (74-106)
[2024-09-04 07:15] LABS: Absolute Lymphocyte Count 0.97 X10^3/uL (0.83-4.51); Absolute Neutrophil Count 2.6 X10^3/uL (2.0-7.7); Basophil# 0.03 X10^3/uL; Basophil% 0.7 % (0-1); Eosinophil# 0.01 X10^3/uL; Eosinophils% 0.2 % (0-5); Hematocrit 33.3 % (37-47); Hemoglobin 11.8 g/dL (12.0-15.0); Lymphocyte # 0.97 X10^3/ul (0.83-4.51); Lymphocyte % 23.3 % (19-41); Mean Corp Hgb Conc 35.4 g/dL (32-36); Mean Corpuscular Hgb 31.9 pg (27.0-32.0); Mean Platelet Vol. 10.3 fl (6.2-12.0); Monocyte# 0.53 X10^3/uL; Monocyte% 12.7 % (0-10); NRBC Flagged by Analyzer 0 % (0-5); Neutrophil # 2.61 X10^3/uL (2.7-7.7); Neutrophil % 62.9 % (47-70); Platelet Count 122 K/mm3 (150-450); RBC Distribution Width CV 12.5 % (11.6-14.6); RBC Distribution Width SD 41.4 fl (35.1-43.9); White Blood Count 4.2 K/mm3 (4.4-11.0)
[2024-09-04] MEDS: amLODIPine 5 MG Tablet PO (09:04)
[2024-09-04] MEDS: Potassium Chloride Oral Tablet 10 MEQ PO ×2 (09:04→22:05)
[2024-09-04] MEDS: Oseltamivir Phosphate 30 MG Capsule PO ×2 (09:04→22:07)
[2024-09-04] MEDS: FLUoxetine 20 MG Capsule PO (09:04)
[2024-09-04] MEDS: Enoxaparin 40 MG/0.4 ML Syringe SC (09:04)
[2024-09-04] MEDS: Aspirin 81 MG TAB.CHEW PO (09:04)
[2024-09-04] MEDS: Menthol/Lanolin/Calamine/Znox 113 GM Tube 1 APPLIC TOPICAL ×2 (09:05→22:07)
[2024-09-04] MEDS: busPIRone 5 MG Tablet PO ×2 (09:10→22:05)
[2024-09-04] MEDS: Amantadine 100 MG Capsule PO (09:12)
[2024-09-04 09:31] LABS: Anion Gap 3 (5-15); BUN 16 mg/dL (7-18); BUN/Creat Ratio 16.1 RATIO (10-20); Calcium,Total 7.2 mg/dL (8.5-10.1); Chloride 114 mmol/L (98-107); Creatinine, Serum 0.99 mg/dL (0.55-1.02); EST Glomerular Filtration Rate 59 mL/min (>60); Est Glom Filt Rate - Afr Amer 72 mL/min (>60); Estimated Creatinine Clearance 58.66 ml/min; Glucose 115 mg/dL (74-106); Potassium 3.8 mmol/L (3.5-5.1); Sodium Level 138 mmol/L (136-145)
[2024-09-04] MEDS: Albuterol 2.5 MG/3 ML VIAL.NEB. INHALATION (10:59)
--- NOTE | 2024-09-04 11:52 | PN_ITS ---
Subjective Subjective Patient seen and examined. She said she did feel a bit better today though she still felt weak. She denies any dizziness or lightheadedness, fever or chills, palpitations, nausea or vomiting. Review of systems otherwise negative. She is on 2 L of oxygen by nasal cannula. Objective Data Objective Data Vital Signs: Vital Signs Temp Pulse Resp BP Pulse Ox O2 Del Method O2 Flow Rate 98.4 F 81 18 131/66 H 95 Nasal Cannula 2 09/04/24 08:34 09/04/24 11:25 09/04/24 11:25 09/04/24 08:53 09/04/24 08:34 09/04/24 08:39 09/04/24 08:39 Oxygen Flow Rate (L/min) 2 Oxygen Delivery Method Nasal Cannula Weight: 190 lb 7.67 oz Body Mass Index (BMI) 32.5 Intake & Output: Intake and Output for Last 24 Hours 09/02/24 09/03/24 09/04/24 23:59 23:59 23:59 Intake Total 50 / 50 1999 1000 / 1000 Balance 50 / 50 1999 1000 / 1000 Lab / Micro Data 09/04/24 06:44 09/04/24 06:44 Labs: Laboratory Results - last 24 hr 09/03/24 11:59: POC Glucose 159 H 09/03/24 16:53: POC Glucose 136 H 09/03/24 21:25: POC Glucose 143 H 09/04/24 06:18: POC Glucose 118 H 09/04/24 06:44: WBC 4.2 L, RBC 3.70 L, Hgb 11.8 L, Hct 33.3 L, MCV 90.0, MCH 31.9, MCHC 35.4, RDW Std Deviation 41.4, RDW Coeff of Saida 12.5, Plt Count 122 L, MPV 10.3, Immature Gran % (Auto) 0.200, Neut % (Auto) 62.9, Lymph % (Auto) 23.3, [place] % (Auto) 12.7 H, Eos % (Auto) 0.2, Baso % (Auto) 0.7, Absolute Neuts (auto) 2.6, Absolute Lymphs (auto) 0.97, Nucleated RBC % 0, Sodium 138, Potassium 3.8, Chloride 114 H, Carbon Dioxide 21.0, Anion Gap 3 L, BUN 16, Creatinine 0.99, Estim Creat Clear Calc 58.66, Est GFR (MDRD) Af Amer 72, Est GFR (MDRD) Non-Af 59 L, BUN/Creatinine Ratio 16.1, Glucose 115 H, Calcium 7.2 L Micro: Microbiology 09/02/24 20:31 Urine, Clean Catch Urine Culture - Final Escherichia coli 09/04/24 01:53 Stool Clostridioides difficile (PCR) - Final 09/02/24 19:35 Mucosa - Nose SARS-CoV-2, Influenza & RSV (PCR) - Final Influenzae A Physical Exam Const alert, oriented x3 and no apparent distress Constitutional Narrative: looks much better today General Appearance: cooperative and well developed HEENT normocephalic, head/scalp atraumatic and moist oral mucous membranes Eyes PERRL and EOMs intact bilaterally Neck no lymphadenopathy and supple Lymph Lymphatic: no lymphadenopathy noted and no lymphedema noted Resp Resp Narrative: mildly diminished breath sounds bibasally, no wheezes or crackles. Still on 2L of oxygen by nasal canula Cardio regular rate, regular rhythm, S1 normal heart sound, S2 normal heart sound and no murmurs GI normal to inspection, nondistended, normoactive bowel sounds, soft to palpation, non-tender and non-distended Extremity normal capillary refill, no clubbing, cyanosis or edema and no calf tenderness General Extremity: no tenderness to palpation of joints or extremities Skin General Skin Exam: no breakdown Neuro CN's II-XII intact bilaterally, no focal motor deficits and no sensory deficits noted Motor Exam: general weakness Psych thought process normal and cooperative Appearance: appropriate Assessment & Plan Assessment/Plan (1) Hypoxia: (2) Influenza A: (3) Acute UTI: (4) Generalized weakness: (5) Falls: PLAN: Plan #Debility due to mechanical falls * PT/OT on board * fall precautions * #Hypoxia due to Acute influenza A infection * on 2L of oxygen by nasal canula * on tamiflu, renally dosed * breathing treatment with bronchodilators * titrate oxygen to maintain sats >90% #Acute complicated UTI * on IV rocephin. * Urine culture growing E. coli which is sensitive to ceftriaxone. Will continue ceftriaxone for now. * * #History of Parkinson's disease with mild cognitive impairment * on levodopa-carbidopa, entacapone and amantadine * #Hypertension: on amlodipine and losartan. HCTZ held on admission. ISS. Accuchecks ACHS # IRVING: * Resolved. Creatinine is down to 0.99 today. * #Hypocalcemia: Calcium is 7.2. Was 8 on admission. Will give oral replacement and monitor. #Type 2 diabetes mellitus with chronic neuropathy: On gabapentin. All meds on hold. Insulin sliding scale. Accuchecks ACHS. #Anxiety and depression: on fluoxetine, bupropion, trazodone and buspar. #Restless leg syndrome: on requip #nicotine dependence: counseled to quit. Nicotine patch as needed. #History of CVA: on aspirin, statin. DVT prophylaxis: lovenox Disposition: For likely DC tomorrow. Charges/Coding Visit Charges Inpatient E&M: 74115 Subs Hosp L2
--- NOTE | 2024-09-04 12:21 | CASEMGMT ---
Social Work SW checked w/pt regarding discharge plan. Pt declined referral for care home facility. SW inquired about home health for PT/OT, pt does not want a referral for HHC either. SW inquired about a prescription for outpt therapies, pt declined any referrals at this time. MARIZOL Vital
[2024-09-04 12:23] LABS: Bedside Glucose 147 mg/dL (74-106)
[2024-09-04] MEDS: Calcium Carbonate 500 MG Tablet PO ×2 (12:31→17:01)
[2024-09-04] MEDS: Insulin Lispro 100 UNIT/ML INSULN.PEN SC (15:34)
[2024-09-04 16:19] LABS: Bedside Glucose 159 mg/dL (74-106)
[2024-09-04] MEDS: 0.9% Saline Lock 10 ML Syringe IV ×2 (22:02→23:24)
[2024-09-04] MEDS: Ceftriaxone 1 GM/50 ML BAG IV (22:03)
[2024-09-04] MEDS: Pramipexole Di-HCl 0.5 MG Tablet PO (22:06)
[2024-09-04] MEDS: traZODone 100 MG Tablet 150 MG PO (22:06)
[2024-09-04] MEDS: Atorvastatin Calcium 20 MG Tablet PO (22:07)
[2024-09-04 22:57] LABS: Bedside Glucose 150 mg/dL (74-106)
[2024-09-05] VITALS (8 sets, daily range): BP systolic 152–180; BP diastolic 63–74; PULSE 56–64; RESP 18–20; TEMP 36.5–36.8; O2SAT 93–96; BMI 32.1
[2024-09-05] MEDS: ENTACAPONE PO ×2 (06:12→13:41)
[2024-09-05] MEDS: CARBIDOPA PO ×2 (06:12→13:41)
[2024-09-05] MEDS: Gabapentin 300 MG Capsule PO ×2 (06:12→13:41)
[2024-09-05] MEDS: LEVODOPA PO ×2 (06:12→13:41)
[2024-09-05] MEDS: hydrALAZINE 20 MG/ML Vial 10 MG IV (06:13)
[2024-09-05] MEDS: 0.9% Saline Lock 10 ML Syringe IV (06:18)
[2024-09-05 06:28] LABS: Absolute Neutrophil Count 2.3 X10^3/uL (2.0-7.7); Basophil# 0.03 X10^3/uL; Basophil% 0.7 % (0-1); Eosinophil# 0.11 X10^3/uL; Eosinophils% 2.7 % (0-5); Hematocrit 34.3 % (37-47); Hemoglobin 12.5 g/dL (12.0-15.0); Lymphocyte % 32.1 % (19-41); Mean Corp Hgb Conc 36.4 g/dL (32-36); Mean Corpuscular Hgb 32.2 pg (27.0-32.0); Mean Corpuscular Volume 88.4 fL (81-99); Mean Platelet Vol. 10.9 fl (6.2-12.0); Monocyte# 0.34 X10^3/uL; Monocyte% 8.4 % (0-10); NRBC Flagged by Analyzer 0 % (0-5); Neutrophil # 2.26 X10^3/uL (2.7-7.7); Neutrophil % 55.9 % (47-70); Platelet Count 143 K/mm3 (150-450); RBC Distribution Width CV 12.4 % (11.6-14.6); RBC Distribution Width SD 40.2 fl (35.1-43.9); Red Blood Count 3.88 M/mm3 (4.2-5.4); White Blood Count 4.1 K/mm3 (4.4-11.0)
[2024-09-05 06:47] LABS: Bedside Glucose 125 mg/dL (74-106)
[2024-09-05] MEDS: Calcium Carbonate 500 MG Tablet PO ×2 (07:46→12:03)
[2024-09-05] MEDS: FLUoxetine 20 MG Capsule PO (07:46)
[2024-09-05] MEDS: Enoxaparin 40 MG/0.4 ML Syringe SC (07:46)
[2024-09-05] MEDS: Amantadine 100 MG Capsule PO (07:46)
[2024-09-05] MEDS: busPIRone 5 MG Tablet PO (07:46)
[2024-09-05] MEDS: Potassium Chloride Oral Tablet 10 MEQ PO (07:47)
[2024-09-05] MEDS: Aspirin 81 MG TAB.CHEW PO (07:47)
[2024-09-05] MEDS: amLODIPine 5 MG Tablet PO (07:47)
[2024-09-05] MEDS: Oseltamivir Phosphate 30 MG Capsule PO (07:47)
[2024-09-05] MEDS: Menthol/Lanolin/Calamine/Znox 113 GM Tube 1 APPLIC TOPICAL (07:48)
[2024-09-05 08:52] LABS: Anion Gap 3 (5-15); BUN 10 mg/dL (7-18); BUN/Creat Ratio 13.6 RATIO (10-20); Calcium,Total 7.9 mg/dL (8.5-10.1); Chloride 112 mmol/L (98-107); Creatinine, Serum 0.73 mg/dL (0.55-1.02); EST Glomerular Filtration Rate 84 mL/min (>60); Est Glom Filt Rate - Afr Amer 101 mL/min (>60); Estimated Creatinine Clearance 72.15 ml/min; Glucose 143 mg/dL (74-106); Potassium 3.8 mmol/L (3.5-5.1); Sodium Level 138 mmol/L (136-145)
[2024-09-05 11:52] LABS: Bedside Glucose 124 mg/dL (74-106)
--- NOTE | 2024-09-05 13:15 | DCINST_ITS ---
Discharge Instructions Diet Discharge Diet: Low fat / Low cholesterol DC O2, CPAP, BIPAP needs RN Home O2 Qualification: Home O2 Qualification: Is the patient on home oxygen No 09/05/24 09:59 Home O2 Qualification: AT REST 1- Pulse Ox at rest 95 09/05/24 09:59 Home O2 Qualification: WITH AMBULATION 1- Pulse Ox with ambulation 93 09/05/24 09:59 1- Oxygen Flow Rate with 0 09/05/24 09:59 ambulation Home O2 Discharge instructions: No Dressing / Incision Discharge Activity: Return to Normal Activity Weight Bearing Status: Weight bearing as tolerated Dressing / Incision Call your doctor if you observe: Fever of 101 or Higher, Shortness of breath, Dizziness, Swelling in the ankles and Chest pain Follow Up Care Test Results: Test results from this visit will be discussed in further detail at your follow- up appointment, if applicable. Discharge Plan Admission Admit Date/Time: 09/02/24 21:41 Primary Reason for Your Visit: UTI, influenza Attending Provider: Maya Gray Primary Care Provider: Moses Aceves Consulting Providers: Genna Ibrahim Instructions Patient Instructions: ED Influenza (Adult), ED Cystitis Female Adult Discharge Orders/Prescriptions Prescriptions: New oseltamivir 30 mg Capsule 30 mg PO BID Qty: 5 0RF cefdinir 300 mg capsule 300 mg PO BID Qty: 10 0RF Continued gabapentin 300 mg capsule 300 mg PO TID ropinirole 1 mg tablet 1 mg PO QHS Qty: 90 1RF uxacwqsuj-qewbhgza-cfjkygwokr 25-100-200 mg tablet See Rx Instructions PO TID Qty: 405 1RF Rx Instructions: 1-1/2 tablets PO three times a day simvastatin 40 MG tablet 40 mg PO QHS Patient Comments: cholesterol lowering trazodone 150 MG tablet 150 mg PO QHS Patient Comments: sleep magnesium 250 MG tablet 250 mg PO DAILY Patient Comments: supplement fluoxetine [Prozac] 20 MG capsule 20 mg PO DAILY buspirone 5 MG tablet 5 mg PO BID amlodipine 5 MG tablet 5 mg PO DAILY bupropion HCl 100 MG tablet sustained-release 12 hr 100 mg PO DAILY bupropion HCl 100 MG tablet sustained-release 12 hr 200 mg PO QHS losartan-hydrochlorothiazide 1 EACH tablet 1 ea PO DAILY albuterol sulfate 1 INHALER inhaler 1 - 2 puff inhalation Q4H PRN PRN (Reason: Sob &/Or Wheezing) metformin 1,000 MG tablet,ER herminia.retention 24 hr 1,000 mg PO BID alendronate 70 mg tablet 70 mg PO .weekly buspirone 10 mg tablet 10 mg PO TID fluoxetine 10 mg capsule 10 mg PO DAILY glipizide 5 mg tablet 10 mg PO DAILY furosemide 20 mg tablet 20 mg PO DAILY potassium chloride 10 mEq tablet extended release 20 meq PO DAILY amantadine HCl 100 mg capsule 100 mg PO QDAY Qty: 90 1RF Discontinued potassium chloride 10 mEq capsule, extended release 10 meq PO BID losartan 100 mg tablet 100 mg PO DAILY Referrals / Follow Up: Moses Aceves DO [Primary Care Provider] - Within 1 Week Disposition Disposition (needs filled in before D/C Order can be placed): Home, Self Care
--- NOTE | 2024-09-05 13:17 | DS.PCM_ITS ---
Providers Date of Admission: 09/02/24 Date of Discharge: 09/05/24 Primary Care Physician: Dr. Moses Aceves DO Reason For Visit: FALLS UTI INFLUENZA A ADULT FTT Diagnosis Discharge Diagnosis (1) Hypoxia: Status: Acute Code(s): R09.02 - Hypoxemia (2) Influenza A: Status: Acute Code(s): J10.1 - Influenza due to other identified influenza virus with other respiratory manifestations (3) Acute UTI: Status: Acute Code(s): N39.0 - Urinary tract infection, site not specified (4) Generalized weakness: Status: Acute Code(s): R53.1 - Weakness (5) Falls: Status: Acute Code(s): R29.6 - Repeated falls Plan #Debility due to mechanical falls * PT/OT on board * fall precautions * #Hypoxia due to Acute influenza A infection * on 2L of oxygen by nasal canula * on tamiflu, renally dosed * breathing treatment with bronchodilators * titrate oxygen to maintain sats >90% #Acute complicated UTI * on IV rocephin. * Urine culture growing E. coli which is sensitive to ceftriaxone. Will continue ceftriaxone for now. * * #History of Parkinson's disease with mild cognitive impairment * on levodopa-carbidopa, entacapone and amantadine * #Hypertension: on amlodipine and losartan. HCTZ held on admission. ISS. Accuchecks ACHS # IRVING: * Resolved. Creatinine is down to 0.99 today. * #Hypocalcemia: Calcium is 7.2. Was 8 on admission. Will give oral replacement and monitor. #Type 2 diabetes mellitus with chronic neuropathy: On gabapentin. All meds on hold. Insulin sliding scale. Accuchecks ACHS. #Anxiety and depression: on fluoxetine, bupropion, trazodone and buspar. #Restless leg syndrome: on requip #nicotine dependence: counseled to quit. Nicotine patch as needed. #History of CVA: on aspirin, statin. DVT prophylaxis: lovenox Disposition: For likely DC tomorrow. Medications at Discharge Home Medications fluoxetine 20 mg capsule (Prozac) 20 mg PO DAILY depression 10/18/16 magnesium 250 mg tablet 250 mg PO DAILY 10/18/16 simvastatin 40 mg tablet 40 mg PO QHS 10/18/16 trazodone 150 mg tablet 150 mg PO QHS 10/18/16 albuterol sulfate 90 mcg/actuation aerosol inhaler 1 - 2 puff inhalation Q4H PRN PRN Sob &/Or Wheezing 05/25/19 bupropion HCl 100 mg tablet,12 hr sustained-release 100 mg PO DAILY depression 05/25/19 bupropion HCl 100 mg tablet,12 hr sustained-release 200 mg PO QHS depression 05/25/19 buspirone 5 mg tablet 5 mg PO BID anxiety 05/25/19 losartan 100 mg-hydrochlorothiazide 25 mg tablet 1 ea PO DAILY 05/25/19 metformin 1,000 mg 24 hr tablet,extended release (gastric reten.) 1,000 mg PO BID 05/25/19 gabapentin 300 mg capsule 300 mg PO TID 12/04/21 carbidopa 25 mg-levodopa 100 mg-entacapone 200 mg tablet See Rx Instructions PO TID #405 tabs 07/27/24 ropinirole 1 mg tablet 1 mg PO QHS #90 tabs 07/27/24 amantadine HCl 100 mg capsule 100 mg PO QDAY #90 caps 08/09/24 alendronate 70 mg tablet 70 mg PO .weekly bones 09/02/24 buspirone 10 mg tablet 10 mg PO TID anxiety 09/02/24 fluoxetine 10 mg capsule 10 mg PO DAILY depression 09/02/24 glipizide 5 mg tablet 10 mg PO DAILY diabetes 09/02/24 furosemide 20 mg tablet 20 mg PO DAILY water pill 09/03/24 potassium chloride 10 mEq tablet,extended release 20 meq PO DAILY replacement 09/03/24 amlodipine 10 mg tablet 10 mg PO DAILY #30 tabs 09/05/24 cefdinir 300 mg capsule 300 mg PO BID #10 caps 09/05/24 oseltamivir 30 mg capsule 30 mg PO BID #5 caps 09/05/24 Hospital Course Operations None Procedures None Summary of Care Provided Minutes Spent on Discharge: 45 Hospital Course: Patient is a 69-year-old female with an extensive past medical history as outlined was admitted through the ED on 09/02/2024 with complaint of weakness and mechanical falls for about 2 days prior to admission. She does admit declining over the last month prior to admission. She lived alone and was usually checked on by her neighbor. The neighbor checked on her on the day of admission and given her history of falls she was brought into the ED. She also admitted to dysuria and urinary frequency over the last week prior to admission. She also had an associated dry cough with rhinorrhea and congestion and shortness of breath. CBC was essentially unremarkable with WBC of 8.2, hemoglobin of 4.9 and platelets of 162. Creatinine was 1.26. Initial troponin was 32. Chest x-ray showed no acute cardiopulmonary pathology. CT of the brain showed no acute intracranial pathology. COVID, flu and RSV PCR was positive for influenza A. Urinalysis did show 3+ bacteria and elevated leukocyte esterase consistent with UTI. She was therefore admitted and managed for debility due to influenza A infection as well as UTI. She was started on IV ceftriaxone and started on p.o. Tamiflu. She remained on room air. Urine cultures grew pansensitive E. coli. Patient worked with therapy and therapy did recommend referral for [facility] facility. Patient however adamantly refused this. Social work also inquired about home health for PT OT but patient did not want a referral for PT OT either. Social work also asked about a prescription to be given to patient for outpatient therapies but patient declined any referrals also. She was discharged home on 09/05/2024 on p.o. cefdinir 300 mg twice daily for 5-day course and was also given a prescription for p.o. Tamiflu 30 mg twice daily for total of 5 tablets to complete a 5-day course. She is to follow-up with her primary care doctor within 1 to 2 weeks. Of note her blood pressure was elevated in the 170s systolic on the morning of discharge. She was given a dose of p.o. clonidine 0.2 mg x 1. Her blood pressure had been in the low 110s to 130s systolic during the admission. However, it had gone up into the 150s-170s systolic. I therefore continued her losartan and hydrochlorothiazide and increase amlodipine from 5 mg to 10 mg daily in light of her elevated blood pressure. She is to follow up with her PCP for her BP meds to be adjusted as needed. Patient seen and examined prior to discharge. She had no active complaints. Review of systems otherwise negative. She was eager to be discharged home. Labs and vitals reviewed. Home medication reviewed and reconciled. Physical Exam Const alert, oriented x3 and no apparent distress Constitutional Narrative: l General Appearance: cooperative, comfortable, well kempt and well developed Orientation / Consciousness: awake Exam Limitations: no limitations HEENT normocephalic, head/scalp atraumatic, hearing grossly normal bilaterally, moist oral mucous membranes and oropharynx normal Mouth: oral and palatal mucosa normal Eyes PERRL and EOMs intact bilaterally Neck no lymphadenopathy and supple Lymph Lymphatic: no lymphadenopathy noted and no lymphedema noted Resp Resp Narrative: mildly diminished breath sounds bibasally, no wheezes or crackles. On room air. Cardio regular rate, regular rhythm, S1 normal heart sound, S2 normal heart sound and no murmurs GI normal to inspection, nondistended, normoactive bowel sounds, soft to palpation, non-tender and non-distended Extremity normal to inspection, full ROM, normal capillary refill, no clubbing, cyanosis or edema and no calf tenderness General Extremity: no tenderness to palpation of joints or extremities Skin no rashes or lesions noted General Skin Exam: no breakdown Neuro oriented x3, CN's II-XII intact bilaterally, moves all extremities, no focal motor deficits and no sensory deficits noted Sensorium / Orientation: awake Motor Exam: strength 5/5 throughout and general weakness Psych thought process normal and cooperative Appearance: appropriate Weight / BMI Weight Weight: 188 lb 4.396 oz Body Mass Index (BMI) 32.1 ABG / Lab / Microbiology Data 09/05/24 05:30 09/05/24 08:10 Laboratory: Laboratory Results - last 24 hr 09/04/24 15:30: POC Glucose 159 H 09/04/24 21:56: POC Glucose 150 H 09/05/24 05:30: WBC 4.1 L, RBC 3.88 L, Hgb 12.5, Hct 34.3 L, MCV 88.4, MCH 32.2 H, MCHC 36.4 H, RDW Std Deviation 40.2, RDW Coeff of [place] 12.4, Plt Count 143 L, MPV 10.9, Immature Gran % (Auto) 0.200, Neut % (Auto) 55.9, Lymph % (Auto) 32.1, [place] % (Auto) 8.4, Eos % (Auto) 2.7, Baso % (Auto) 0.7, Absolute Neuts (auto) 2.3, Absolute Lymphs (auto) 1.30, Nucleated RBC % 0, Sodium Cancelled, Potassium Cancelled, Chloride Cancelled, Carbon Dioxide Cancelled, Anion Gap Cancelled, BUN Cancelled, Creatinine Cancelled, Estim Creat Clear Calc Cancelled, Est GFR (MDRD) Af Amer Cancelled, Est GFR (MDRD) Non-Af Cancelled, BUN/Creatinine Ratio Cancelled, Glucose Cancelled, Calcium Cancelled 09/05/24 06:14: POC Glucose 125 H 09/05/24 08:10: Sodium 138, Potassium 3.8, Chloride 112 H, Carbon Dioxide 24.0, Anion Gap 3 L, BUN 10, Creatinine 0.73, Estim Creat Clear Calc 72.15, Est GFR (MDRD) Af Amer 101, Est GFR (MDRD) Non-Af 84, BUN/Creatinine Ratio 13.6, Glucose 143 H, Calcium 7.9 L 09/05/24 11:25: POC Glucose 124 H Microbiology: Microbiology 09/02/24 20:31 Urine, Clean Catch Urine Culture - Final Escherichia coli 09/04/24 01:53 Stool Clostridioides difficile (PCR) - Final 09/02/24 19:35 Mucosa - Nose SARS-CoV-2, Influenza & RSV (PCR) - Final Influenzae A D/C Instructions Discharge Diet: Low fat / Low cholesterol Discharge Activity: Return to Normal Activity Weight Bearing Status: Weight bearing as tolerated Call your doctor if you observe: Fever of 101 or Higher, Shortness of breath, Dizziness, Swelling in the ankles and Chest pain DC O2, CPAP, BIPAP Needs RN Home O2 Qualification: Home O2 Qualification: Is the patient on home oxygen No 09/05/24 09:59 Home O2 Qualification: AT REST 1- Pulse Ox at rest 95 09/05/24 09:59 Home O2 Qualification: WITH AMBULATION 1- Pulse Ox with ambulation 93 09/05/24 09:59 1- Oxygen Flow Rate with 0 09/05/24 09:59 ambulation Home O2 Discharge instructions: No DC home with Oxygen: No Meaningful Use Info Meaningful Use Meaningful Use Diagnoses (Choose all that apply): None applicable Ischemic Stroke Statin Dosing Therapy Reference: STATIN DOSE THERAPY REFERENCE: * Patients > 75 years receive moderate or high dose statin therapy. * Patients 75 years or YOUNGER should receive HIGH intensity statin dose unless contraindicated. You will be required to document reason for non-treatment if statin daily dose does not meet guidelines. HIGH DOSE STATIN THERAPY DAILY Atorvastatin > than or = to 40 mg Rosuvastatin > than or = to 20 mg Amlodipine + Atorvastatin > than or = to 2.5/40 mg Ezetimibe + Simvastatin 10/80 mg Simvastatin 80mg Discharge Plan Admission Admit Date/Time: 09/02/24 21:41 Primary Reason for Your Visit: UTI, influenza Attending Provider: Maya Gray Primary Care Provider: Moses Aceves Consulting Providers: Genna Ibrahim Instructions Patient Instructions: ED Influenza (Adult), ED Cystitis Female Adult Discharge Orders/Prescriptions Prescriptions: New oseltamivir 30 mg Capsule 30 mg PO BID Qty: 5 0RF cefdinir 300 mg capsule 300 mg PO BID Qty: 10 0RF amlodipine 10 mg tablet 10 mg PO DAILY Qty: 30 2RF Continued gabapentin 300 mg capsule 300 mg PO TID ropinirole 1 mg tablet 1 mg PO QHS Qty: 90 1RF [id number] 25-100-200 mg tablet See Rx Instructions PO TID Qty: 405 1RF Rx Instructions: 1-1/2 tablets PO three times a day simvastatin 40 MG tablet 40 mg PO QHS Patient Comments: cholesterol lowering trazodone 150 MG tablet 150 mg PO QHS Patient Comments: sleep magnesium 250 MG tablet 250 mg PO DAILY Patient Comments: supplement fluoxetine [Prozac] 20 MG capsule 20 mg PO DAILY buspirone 5 MG tablet 5 mg PO BID bupropion HCl 100 MG tablet sustained-release 12 hr 100 mg PO DAILY bupropion HCl 100 MG tablet sustained-release 12 hr 200 mg PO QHS losartan-hydrochlorothiazide 1 EACH tablet 1 ea PO DAILY albuterol sulfate 1 INHALER inhaler 1 - 2 puff inhalation Q4H PRN PRN (Reason: Sob &/Or Wheezing) metformin 1,000 MG tablet,ER herminia.retention 24 hr 1,000 mg PO BID alendronate 70 mg tablet 70 mg PO .weekly buspirone 10 mg tablet 10 mg PO TID fluoxetine 10 mg capsule 10 mg PO DAILY glipizide 5 mg tablet 10 mg PO DAILY furosemide 20 mg tablet 20 mg PO DAILY potassium chloride 10 mEq tablet extended release 20 meq PO DAILY amantadine HCl 100 mg capsule 100 mg PO QDAY Qty: 90 1RF Discontinued potassium chloride 10 mEq capsule, extended release 10 meq PO BID amlodipine 5 MG tablet 5 mg PO DAILY losartan 100 mg tablet 100 mg PO DAILY Referrals / Follow Up: Moses Aceves, DO [Primary Care Provider] - Within 1 Week Disposition Disposition (needs filled in before D/C Order can be placed): Home, Self Care Charges/Coding Visit Charges Inpatient E&M: 30569 Disch Hosp >30min
[2024-09-05] MEDS: cloNIDine HCl 0.2 MG Tablet PO (14:13)
== END 2024-09-05 15:54 | disposition home or self-care (01) | DRG 194 ==
LOC: ED 21:37 → MS3 21:52
PROVIDERS: Nurse Practitioner; Admitting Provider Family Medicine; Emergency Provider Emergency Medicine; PCP Student in an Organized Health Care Education/Training Program; Visit Provider Student in an Organized Health Care Education/Training Program
DX: J10.1 Influenza due to other identified influenza virus with other respiratory manifestations (principal); N39.0 Urinary tract infection, site not specified; J44.0 Chronic obstructive pulmonary disease with (acute) lower respiratory infection; N17.9 Acute kidney failure, unspecified; E83.51 Hypocalcemia; E11.22 Type 2 diabetes mellitus with diabetic chronic kidney disease; B96.20 Unspecified Escherichia coli [E. coli] as the cause of diseases classified elsewhere; R62.7 Adult failure to thrive; N18.9 Chronic kidney disease, unspecified; F10.10 Alcohol abuse, uncomplicated; I12.9 Hypertensive chronic kidney disease with stage 1 through stage 4 chronic kidney disease, or unspecified chronic kidney disease; F32.A Depression, unspecified; G25.81 Restless legs syndrome; Z68.32 Body mass index [BMI] 32.0-32.9, adult; E11.42 Type 2 diabetes mellitus with diabetic polyneuropathy; E78.5 Hyperlipidemia, unspecified; G31.84 Mild cognitive impairment of uncertain or unknown etiology; F17.210 Nicotine dependence, cigarettes, uncomplicated; F41.9 Anxiety disorder, unspecified; R09.02 Hypoxemia; Z79.83 Long term (current) use of bisphosphonates; Z90.710 Acquired absence of both cervix and uterus; R53.1 Weakness; Z86.73 Personal history of transient ischemic attack (TIA), and cerebral infarction without residual deficits; Z79.84 Long term (current) use of oral hypoglycemic drugs; R53.81 Other malaise; R29.6 Repeated falls
CPT/HCPCS: 36415; 70450; 71046; 80048; 80053; 80307; 81001; 82962; 83735; 84100; 84484; 85025; 87077; 87086; 87088; 87186; 87493; 87631; 93005; 94640; 94668; 97110; 97116; 97162; 97166; 97530; 97802; 99285; A4216

== ENCOUNTER → 2024-11-15 | Outpatient (CLI) | payer MEDICARE, MEDICAID, SELFPAY ==
[2024-11-17 15:08] LABS: Albumin 3.5 g/dL (2.9-4.4); Alpha-1-Globulins 0.2 g/dL (0.0-0.4); Gamma Globulin 0.9 g/dL (0.4-1.8); Immunoglobulin A 177 mg/dL (87-352); Immunoglobulin G 829 mg/dL (586-1602); Immunoglobulin M 73 mg/dL (26-217); PROEL- TOTAL PROTEIN 6.6 g/dL (6.0-8.5)
== END | disposition home or self-care (01) ==
PROVIDERS: PCP Student in an Organized Health Care Education/Training Program; Referring Provider Psychiatry & Neurology Neurology; Visit Provider Psychiatry & Neurology Neurology
DX: G62.9 Polyneuropathy, unspecified (principal)
CPT/HCPCS: 36415; 82784; 84165; 86334; 86335